=== PATIENT | female | born 1950 | race Caucasian/White ===

== ENCOUNTER → 2018-08-31 | Outpatient (CLI) | payer MEDICARE, OTHER ==
[2018-08-31 16:54] LABS: HCT 42.1 % (34.0-46.0); HGB 13.5 gm/dL (11.4-16.0); MCH 30.1 pg (25.0-35.0); MCV 93.9 fL (80.0-100.0); Mean Platelet Volume 7.8; Platelet Count 244 k/uL (150-450); RBC 4.49 m/uL (3.80-5.40); RDW 13.6 % (11.5-15.5); WBC 8.6 k/uL (3.8-10.6)
[2018-08-31 17:02] LABS: Potassium 4.4 mmol/L (3.5-5.1)
== END ==
LOC: LABPAT 15:52
PROVIDERS: ATTEND Internal Medicine Interventional Cardiology
DX: Z01.812 Encounter for preprocedural laboratory examination (principal); R06.02 Shortness of breath; R42 Dizziness and giddiness; R94.39 Abnormal result of other cardiovascular function study
CPT/HCPCS: 36415; 80051; 82565; 84520; 85027

== ENCOUNTER → 2018-09-04 | Outpatient (CLI) | payer MEDICARE, OTHER ==
--- NOTE | 2018-09-05 13:39 | CT ---
EXAMINATION TYPE: CT angio chest DATE OF EXAM: 09/04/2018 COMPARISON: None HISTORY: Per patient Abnormal stress test. dizziness and decreased BP CT DLP: 314.5 mGycm Automated exposure control for dose reduction was used. CONTRAST: CTA scan of the thorax is performed with IV Contrast, patient injected with 100 mL of Isovue 370, pul monary embolism protocol. MIP images are created and reviewed. 3D reconstructed images are created on an independent workstation and reviewed. FINDINGS: LUNGS: The lungs are grossly clear, there is no concerning parenchymal mass or nodule identified. T here is no pleural effusion or pneumothorax seen. The tracheobronchial tree is patent. AORTA: The root of the aorta measures approximately 3.8 cm. There is no evident dissection. Proximal descending aorta measures 2.8 cm. Atheromatous changes are present. At the origin of the left subcla vian artery there is a high-grade stenosis present. The left and right common carotid arteries, innom inate artery, right subclavian artery and vertebral arteries are patent, right vertebral artery is do minant. MEDIASTINUM: There is satisfactory enhancement of the pulmonary artery and its branches, there is no CT evidence for pulmonary embolism. There are no greater than 1 cm hilar or mediastinal lymph nodes. No pericardial effusion is seen. There are coronary calcifications present. OTHER: Patient is post cholecystectomy. Somewhat nodular appearance noted at the right adrenal gland could be due to underlying adenoma, consider follow-up IMPRESSION: PROXIMAL LEFT SUBCLAVIAN ARTERY STENOSIS. AORTIC MEASUREMENTS DESCRIBED, THERE IS CORONARY ARTERY DISEASE. ADDITIONAL FINDINGS ABOVE.
== END | disposition home or self-care (01) ==
LOC: RADCTMAIN 15:47
PROVIDERS: ATTEND Internal Medicine Interventional Cardiology
DX: I70.8 Atherosclerosis of other arteries (principal); I25.10 Atherosclerotic heart disease of native coronary artery without angina pectoris; Z90.49 Acquired absence of other specified parts of digestive tract
CPT/HCPCS: 71275; Q9967

== ENCOUNTER → 2018-10-10 | Outpatient (CLI) | payer MEDICARE, OTHER ==
[2018-10-10 17:52] LABS: LDL Cholesterol,Calculated 94.2 mg/dL (0.0-131.0); VLDL Calculation 29.8 mg/dL (5.00-40.00)
== END | disposition home or self-care (01) ==
LOC: LABWHC1 11:49
PROVIDERS: ATTEND Nurse Practitioner Adult Health
DX: E78.2 Mixed hyperlipidemia (principal)
CPT/HCPCS: 36415; 80061; 84450; 84460

== ENCOUNTER 2019-04-29 12:12 | Observation (INO) | payer MEDICARE, OTHER ==
[2019-04-29] MEDS ORDERED: MORPHINE SULFATE 4 MG/ML SYRINGE IV STA (13:09)
[2019-04-29] MEDS ORDERED: SODIUM CHLORIDE 0.9% 1,000 ML IV STA (13:09)
[2019-04-29] MEDS ORDERED: ONDANSETRON 4 MG/2 ML VIAL IVP STA (13:09)
[2019-04-29] MEDS ORDERED: PANTOPRAZOLE 40 MG/10 ML VIAL IVP STA (13:09)
--- NOTE | 2019-04-29 13:51 | ED ---
Abdominal Pain HPI <Jhonatan Burnham - Last Filed: 04/29/19 16:01> - General Source: patient, RN notes reviewed, old records reviewed Mode of arrival: ambulatory Limitations: no limitations <Kami Gale - Last Filed: 04/29/19 16:05> - General Chief Complaint: Abdominal Pain Stated Complaint: Abd pain Time Seen by Provider: 04/29/19 12:41 - History of Present Illness Initial Comments: This is a 68-year-old female presents emergency department with diffuse abdominal pain. She reports that she was seen at [facility], approximately one week ago for upper epigastric abdominal pain. Patient states that she was diagnosed with GERD and sent home. She's had multiple surgeries including hernias, and colostomy reversal's. Patient states that she has had no fevers or chills. She has chronic constipation. Patient states that she has had no changes in urination. She is concerned that there is scar tissue related to her diffuse abdominal pain. (Kami Gale) - Related Data Home Medications Medication Instructions Recorded Confirmed Aspirin [Adult Low Dose Aspirin EC] 81 mg PO DAILY 09/08/18 09/14/18 oxyCODONE ER [OxyCONTIN] 2.5 mg PO HS 09/08/18 09/14/18 Allergies Allergy/AdvReac Type Severity Reaction Status Date / Time tetracycline AdvReac Mild Nausea & Verified 09/14/18 06:51 Vomiting Review of Systems ROS Other: All systems not noted in ROS Statement are negative. <TejJhonatan - Last Filed: 04/29/19 16:01> ROS Other: All systems not noted in ROS Statement are negative. <Kami Gale - Last Filed: 04/29/19 16:05> ROS Statement: Those systems with pertinent positive or pertinent negative responses have been documented in the HPI. Past Medical History Additional Past Medical History / Comment(s): dizziness,"low BP"; restless leg, varicose veins History of Any Multi-Drug Resistant Organisms: None Reported Past Surgical History: Appendectomy, Bowel Resection, Cholecystectomy, Hernia Repair, Hysterectomy Additional Past Surgical History / Comment(s): Colostomy and reversal; Colonoscopy, Cataracts Past Anesthesia/Blood Transfusion Reactions: No Reported Reaction Past Psychological History: No Psychological Hx Reported Smoking Status: Current every day smoker Past Alcohol Use History: None Reported Past Drug Use History: None Reported, Unable to Obtain - Past Family History Mother Family Medical History: No Reported History <Kami Gale - Last Filed: 04/29/19 16:05> General Exam Limitations: no limitations General appearance: alert, in no apparent distress Head exam: Present: atraumatic, normocephalic, normal inspection Eye exam: Present: normal appearance, PERRL, EOMI. Absent: scleral icterus, conjunctival injection, periorbital swelling ENT exam: Present: normal exam Neck exam: Present: normal inspection. Absent: tenderness, meningismus, lymphadenopathy Respiratory exam: Present: normal lung sounds bilaterally. Absent: respiratory distress, wheezes, rales, rhonchi, stridor Cardiovascular Exam: Present: regular rate GI/Abdominal exam: Present: tenderness (Diffuse right lower quadrant and left lower quadrant tenderness.), normal bowel sounds. Absent: soft, distended, guarding, rebound, rigid Extremities exam: Present: normal inspection, full ROM, normal capillary refill. Absent: tenderness, pedal edema, joint swelling, calf tenderness Back exam: Present: normal inspection Neurological exam: Present: alert, oriented X3, CN II-XII intact Psychiatric exam: Present: normal affect, normal mood Skin exam: Present: warm, dry, intact, normal color. Absent: rash <Kami Gale - Last Filed: 04/29/19 16:05> - General Exam Comments Initial Comments: Pleasant 68-year-old female. No significant distress. (Kami Gale) Course <Jhonatan Burnham - Last Filed: 04/29/19 16:01> Vital Signs 04/29/19 04/29/19 12:32 14:00 Temperature 98.9 F Pulse Rate 86 76 Respiratory 18 18 Rate Blood Pressure 108/71 113/68 O2 Sat by Pulse 96 94 L Oximetry - Reevaluation(s) Reevaluation #1: 04/29/19 15:54 PA supervision: I proceeded [id number] evaluation the patient he does demonstrate evidence of abdominal pain and acute diverticulitis computed tomography scan was reviewed. I had a long discussion the patient and her . Patient be admitted for IV antibiotics and treatment of pain as well as IV fluids. The case is discussed with Dr. Kee (Jhonatan Burnham) Medical Decision Making - Lab Data Result diagrams: 04/29/19 14:00 04/29/19 14:00 <TejJhonatan - Last Filed: 04/29/19 16:01> - Lab Data Result diagrams: 04/29/19 14:00 04/29/19 14:00 - Radiology Data Radiology results: report reviewed <Kami Gale - Last Filed: 04/29/19 16:05> - Medical Decision Making This is a 68-year-old female who presents emergency department today for evaluation with complaints of diffuse abdominal pain for the past week. Denies any fevers or other complaints or sat extensive surgical history including colostomy, colostomy removal, as well as rectovaginal fistula. Patient has diffuse abdominal tenderness. Blood work was reviewed and unremarkable. CT shows evidence acute diverticular is. Patient said multiple complications involving diverticulitis in the past. I assessed Patient be admitted for observation or attempt outpatient treatment. Patient is hesitant to be treated outpatient leg, his pain is not managed after morphine. I discussed that she should've close follow-up afterwards with GI specialty. Patient admitted and started on Levaquin and Flagyl. (Kami Gale) - Lab Data Lab Results 04/29/19 04/29/19 04/29/19 Range/Units 14:00 14:00 14:00 WBC 8.8 (3.8-10.6) k/uL RBC 4.52 (3.80-5.40) m/uL Hgb 13.3 (11.4-16.0) gm/dL Hct 41.1 (34.0-46.0) % MCV 90.9 (80.0-100.0) fL MCH 29.3 (25.0-35.0) pg MCHC 32.3 (31.0-37.0) g/dL RDW 13.8 (11.5-15.5) % Plt Count 250 (150-450) k/uL Neutrophils % 53 % Lymphocytes % 34 % Monocytes % 7 % Eosinophils % 3 % Basophils % 1 % Neutrophils # 4.6 (1.3-7.7) k/uL Lymphocytes # 3.0 (1.0-4.8) k/uL Monocytes # 0.6 (0-1.0) k/uL Eosinophils # 0.2 (0-0.7) k/uL Basophils # 0.1 (0-0.2) k/uL PT (9.0-12.0) sec INR (<1.2) APTT (22.0-30.0) sec Sodium 141 (137-145) mmol/L Potassium 4.1 (3.5-5.1) mmol/L Chloride 104 (98-107) mmol/L Carbon Dioxide 29 (22-30) mmol/L Anion Gap 8 mmol/L BUN 14 (7-17) mg/dL Creatinine 0.95 (0.52-1.04) mg/dL Est GFR (CKD-EPI)AfAm 71 (>60 ml/min/1.73 sqM) Est GFR (CKD-EPI)NonAf 61 (>60 ml/min/1.73 sqM) Glucose 98 (74-99) mg/dL Calcium 9.4 (8.4-10.2) mg/dL Total Bilirubin 0.6 (0.2-1.3) mg/dL AST 20 (14-36) U/L ALT 15 (9-52) U/L Alkaline Phosphatase 84 (38-126) U/L Total Protein 7.2 (6.3-8.2) g/dL Albumin 4.1 (3.5-5.0) g/dL Amylase 47 (30-110) U/L Lipase 55 (23-300) U/L Urine Color Yellow Urine Appearance Cloudy H (Clear) Urine pH 6.0 (5.0-8.0) Ur Specific [place] 1.018 (1.001-1.035) Urine Protein Negative (Negative) Urine Glucose (UA) Negative (Negative) Urine Ketones Negative (Negative) Urine Blood Small H (Negative) Urine Nitrite Negative (Negative) Urine Bilirubin Negative (Negative) Urine Urobilinogen <2.0 (<2.0) mg/dL Ur Leukocyte Esterase Negative (Negative) Urine RBC 3 (0-5) /hpf Urine WBC 2 (0-5) /hpf Ur Squamous Epith Cells 10 H (0-4) /hpf Urine Bacteria Rare H (None) /hpf Urine Mucus Rare H (None) /hpf 04/29/19 Range/Units 14:00 WBC (3.8-10.6) k/uL RBC (3.80-5.40) m/uL Hgb (11.4-16.0) gm/dL Hct (34.0-46.0) % MCV (80.0-100.0) fL MCH (25.0-35.0) pg MCHC (31.0-37.0) g/dL RDW (11.5-15.5) % Plt Count (150-450) k/uL Neutrophils % % Lymphocytes % % Monocytes % % Eosinophils % % Basophils % % Neutrophils # (1.3-7.7) k/uL Lymphocytes # (1.0-4.8) k/uL Monocytes # (0-1.0) k/uL Eosinophils # (0-0.7) k/uL Basophils # (0-0.2) k/uL PT 9.9 (9.0-12.0) sec INR 0.9 (<1.2) APTT 22.8 (22.0-30.0) sec Sodium (137-145) mmol/L Potassium (3.5-5.1) mmol/L Chloride (98-107) mmol/L Carbon Dioxide (22-30) mmol/L Anion Gap mmol/L BUN (7-17) mg/dL Creatinine (0.52-1.04) mg/dL Est GFR (CKD-EPI)AfAm (>60 ml/min/1.73 sqM) Est GFR (CKD-EPI)NonAf (>60 ml/min/1.73 sqM) Glucose (74-99) mg/dL Calcium (8.4-10.2) mg/dL Total Bilirubin (0.2-1.3) mg/dL AST (14-36) U/L ALT (9-52) U/L Alkaline Phosphatase (38-126) U/L Total Protein (6.3-8.2) g/dL Albumin (3.5-5.0) g/dL Amylase (30-110) U/L Lipase (23-300) U/L Urine Color Urine Appearance (Clear) Urine pH (5.0-8.0) Ur Specific [place] (1.001-1.035) Urine Protein (Negative) Urine Glucose (UA) (Negative) Urine Ketones (Negative) Urine Blood (Negative) Urine Nitrite (Negative) Urine Bilirubin (Negative) Urine Urobilinogen (<2.0) mg/dL Ur Leukocyte Esterase (Negative) Urine RBC (0-5) /hpf Urine WBC (0-5) /hpf Ur Squamous Epith Cells (0-4) /hpf Urine Bacteria (None) /hpf Urine Mucus (None) /hpf - Radiology Data CT shows correlate for diverticulitis without abscess and postop changes. (Kami Gale) Disposition <Jhonatan Burnham - Last Filed: 04/29/19 16:01> Is patient prescribed a controlled substance at d/c from ED?: No Time of Disposition: 16:05 <Kami Gale - Last Filed: 04/29/19 16:05> Clinical Impression: Diverticulitis Disposition: ADMITTED IP TO THIS HOSP Condition: Stable Referrals: None,Stated [Primary Care Provider] - 1-2 days
[2019-04-29] MEDS: SODIUM CHLORIDE 0.9% 1,000 ML IV STA ×2 (13:56→18:01)
[2019-04-29 14:11] LABS: Basophils # (A) 0.1 k/uL (0-0.2); Basophils % (A) 1 %; Eosinophils # (A) 0.2 k/uL (0-0.7); Eosinophils % (A) 3 %; HCT 41.1 % (34.0-46.0); HGB 13.3 gm/dL (11.4-16.0); Lymphocytes % (A) 34 %; MCH 29.3 pg (25.0-35.0); MCHC 32.3 g/dL (31.0-37.0); MCV 90.9 fL (80.0-100.0); Mean Platelet Volume 7.8; Monocytes # (A) 0.6 k/uL (0-1.0); Monocytes % (A) 7 %; Neutrophils # (A) 4.6 k/uL (1.3-7.7); Neutrophils % (A) 53 %; Platelet Count 250 k/uL (150-450); RBC 4.52 m/uL (3.80-5.40); RDW 13.8 % (11.5-15.5); WBC 8.8 k/uL (3.8-10.6)
[2019-04-29 14:20] LABS: Albumin 4.1 g/dL (3.5-5.0); Calcium 9.4 mg/dL (8.4-10.2); Potassium 4.1 mmol/L (3.5-5.1); Total Bilirubin 0.6 mg/dL (0.2-1.3); Total Protein 7.2 g/dL (6.3-8.2)
[2019-04-29 14:22] LABS: INR 0.9 (<1.2); Partial Thromboplastin Time 22.8 sec (22.0-30.0); Prothrombin Time 9.9 sec (9.0-12.0)
[2019-04-29 14:37] LABS: Appearance,Urine Cloudy (Clear); Bacteria,Urine Rare /hpf; Bilirubin,Urine Negative (Negative); Blood,Urine Small (Negative); Color,Urine Yellow; Glucose,Urine (UA) Negative (Negative); Ketones,Urine Negative (Negative); Leukocyte Esterase,Urine Negative (Negative); Mucus,Urine Rare /hpf; Nitrite,Urine Negative (Negative); Protein,Urine Negative (Negative); RBC,Urine 3 /hpf (0-5); Specific Gravity,Urine 1.018 (1.001-1.035); Squamous Epithelial Cell,Urine 10 /hpf (0-4); Urobilinogen,Urine <2.0 mg/dL (<2.0); WBC,Urine 2 /hpf (0-5)
--- NOTE | 2019-04-29 15:07 | CT ---
EXAMINATION TYPE: CT abdomen pelvis w con DATE OF EXAM: 04/29/2019 COMPARISON: HISTORY: Generalized abdominal pain. CT DLP: 936.5 mGycm Automated exposure control for dose reduction was used. TECHNIQUE: Helical acquisition of images from the lung bases through the pelvis have been completed. CONTRAST: Performed without Oral Contrast and with IV Contrast, patient injected with 100 mL of Isovue 300. FINDINGS: There is a small hiatal hernia present. LUNG BASES: Some minimal dependent atelectatic changes are present. 2 mm subpleural nodular density p resent on axial image #4 at the right lung base questionable clinical significance. AORTA: There are sclerotic vascular calcifications within the aorta and mesenteric vasculature LIVER/GB: Liver shows low attenuation likely due to hepatic steatosis. Gallbladder is surgically abse nt. PANCREAS: No significant abnormality is seen. SPLEEN: No significant abnormality is seen. ADRENALS: No significant abnormality is seen. KIDNEYS: Cortical cysts associated with the left kidney measuring approximately 2 cm posterior latera lly in the lower pole and 18 mm anteriorly, midpole exophytic cyst measures 2.4 cm. Possible 3 mm les ion in the lower pole the right kidney, 8 mm lesion posteriorly in exophytic location REPRODUCTIVE ORGANS: Not seen BOWEL: Small bowel folds show some wall thickening, postop changes are noted to the small bowel in t he anterior abdomen. Within the descending colon there is some bowel wall thickening, diverticular no zaid. Inflammatory changes suspected within the fat adjacent to the sigmoid colon. Postop changes note d to the rectosigmoid colon region. FREE AIR: No Free Air visible. ASCITES: None visible. PELVIC ADENOPATHY: None visualized. RETROPERITONEAL ADENOPATHY: No Retroperitoneal Adenopathy visible. URINARY BLADDER: No significant abnormality is seen. OSSEOUS STRUCTURES: Degenerative disc changes are present in the visualized spine, there is a spinal curvature. Facet arthropathy noted in the lower lumbar spine IMPRESSION: CORRELATE FOR DIVERTICULITIS WITHOUT ABSCESS. POSTOP CHANGES.
[2019-04-29] MEDS ORDERED: metroNIDAZOLE-NS PMX 500 MG in SALINE 1 100ML.BAG IVPB STA (15:38)
[2019-04-29] MEDS ORDERED: LEVOFLOXACIN 750MG-D5W PMX 750 MG in DEXTROSE/WATER 1 150ML.BAG IVPB STA (15:38)
[2019-04-29] MEDS ORDERED: HYDROmorphone 1 MG/ML 1 ML SYRINGE IVP STA (15:41)
[2019-04-29] MEDS ORDERED: ACETAMINOPHEN TAB 325 MG TAB PO PRN (16:18)
[2019-04-29] MEDS ORDERED: HYDROmorphone 1 MG/ML 1 ML SYRINGE IVP PRN (16:18)
[2019-04-29] MEDS ORDERED: KETOROLAC 30 MG/ML 1 ML VIAL IVP PRN (16:18)
[2019-04-29] MEDS ORDERED: IBUPROFEN 400 MG TAB PO PRN (16:18)
[2019-04-29] MEDS ORDERED: NALOXONE 0.4 MG/ML 1 ML VIAL IV PRN (16:18)
[2019-04-29 18:00] VITALS: BMI 31.1
[2019-04-29] MEDS: SODIUM CHLORIDE 0.9% 1,000 ML IV SCH (18:01)
[2019-04-29] MEDS ORDERED: ONDANSETRON 4 MG/2 ML VIAL IVP PRN (19:12)
[2019-04-29] MEDS: MAG HYDROX/AL HYDROX/SIMETH 30 ML CUP PO PRN (22:51)
[2019-04-30] MEDS: metroNIDAZOLE-NS PMX 500 MG in SALINE 1 100ML.BAG IVPB SCH ×2 (03:19→10:58)
[2019-04-30] MEDS: SODIUM CHLORIDE 0.9% 1,000 ML IV SCH ×2 (03:19→10:58)
[2019-04-30 08:34] VITALS: BP 92/51; PULSE 78; RESP 16; TEMP 98.1
[2019-04-30] MEDS ORDERED: ASPIRIN 81 MG PO SCH (09:00)
[2019-04-30] MEDS ORDERED: HEPARIN SODIUM,PORCINE 5,000 UNIT/ML 1 ML VIAL SQ SCH (09:00)
[2019-04-30] MEDS ORDERED: PANTOPRAZOLE 40 MG/10 ML VIAL IV SCH (09:00)
[2019-04-30] MEDS: MAG HYDROX/AL HYDROX/SIMETH 30 ML CUP PO PRN (11:01)
--- NOTE | 2019-04-30 11:46 | P.HPIM ---
History of Present Illness H&P Date: 04/29/19 Chief Complaint: Abdominal pain Patient is a 68-year-old female with a known history of diverticulitis, colostomy and reversal came to ER with the complaints of abdominal pain mainly left lower quadrant worsening for the past 2 weeks. Patient was seen at [facility] about one week ago for upper epigastric abdominal pain. Patient was diagnosed with GERD and sent home. Patient had multiple surgeries including colostomy reversal, hernia repairs. Patient otherwise denied any vomiting. No fever no chills. Nauseated. No chest pain or shortness of breath. headache or dizziness or lightheadedness. Denied any dysuria or hematuria. No aggravating or relieving factors. Patient came to ER for further evaluation. Denied any blood in the stool. CT of abdomen pelvis showed acute diverticulitis. Review of Systems Constitutional: Patient denies any fever or chills . No generalized weakness or weight loss. Abdomen: Does have nausea and abdominal pain. No vomiting no diarrhea Cardiovascular: Patient denies any chest pain or short of breath no palpitations. Respiratory: patient denied any cough is from production. No shortness of breath Neurologic: Patient denied any numbness or tingling headache. Musculoskeletal: Patient denies any complaints of joint swelling or deformity. Skin: Negative Psychiatric: Negative Endocrine: No heat or cold intolerance. No recent weight gain. Genitourinary: No dysuria or hematuria. All other 14 point ROS negative except the above Past Medical History Additional Past Medical History / Comment(s): dizziness,"low BP"; restless leg, varicose veins History of Any Multi-Drug Resistant Organisms: None Reported Past Surgical History: Bowel Resection, Cholecystectomy, Hernia Repair, Hysterectomy Additional Past Surgical History / Comment(s): Colostomy and reversal; Colonoscopy, Cataracts Past Anesthesia/Blood Transfusion Reactions: No Reported Reaction Past Psychological History: No Psychological Hx Reported Smoking Status: Current every day smoker Past Alcohol Use History: None Reported Additional Past Alcohol Use History / Comment(s): has smoked 1/2 ppd for about 45 years Past Drug Use History: None Reported, Unable to Obtain - Past Family History Mother Family Medical History: No Reported History Medications and Allergies Home Medications Medication Instructions Recorded Confirmed Type oxyCODONE-APAP 10-325MG [Percocet 0.5 tab PO HS 04/29/19 04/29/19 History 10-325 mg] Levofloxacin [Levaquin] 500 mg PO DAILY 5 Days #5 tab 04/30/19 Rx metroNIDAZOLE [Flagyl] 500 mg PO Q8HR 5 Days #15 tab 04/30/19 Rx Allergies Allergy/AdvReac Type Severity Reaction Status Date / Time adhesive tape Allergy Severe TURNS SKIN Verified 04/29/19 16:48 BLACK AND BLUE WITH RASH AROUND AREA lactose Allergy Nausea & Verified 04/29/19 16:48 Vomiting & Diarrhea tetracycline AdvReac Mild Nausea & Verified 09/14/18 06:51 Vomiting codeine AdvReac Nausea & Verified 04/29/19 16:48 Vomiting Physical Exam Vitals: Vital Signs Temp Pulse Pulse Resp BP BP Pulse Ox 04/30/19 01:06 98.0 F 66 18 93/53 91 L 04/29/19 19:06 97.6 F 86 16 100/53 93 L 04/29/19 18:03 97.9 F 81 100/66 96 04/29/19 17:37 97.8 F 85 18 98/61 94 L 04/29/19 16:27 97.8 F 76 18 104/74 96 04/29/19 14:00 76 18 113/68 94 L 04/29/19 12:32 98.9 F 86 18 108/71 96 Intake and Output 04/29/19 04/29/19 04/30/19 14:59 22:59 06:59 Other: # Voids 2 Weight 79.832 kg PHYSICAL EXAMINATION: Patient is lying in the bed comfortably, no acute distress, awake alert and oriented.. HEENT: Normocephalic. Neck is supple. Pupils reactive. Nostrils clear. Oral cavity is moist. Ears reveal no drainage. Neck reveals no JVD, carotid bruits, or thyromegaly. CHEST EXAMINATION: Trachea is central. Symmetrical expansion. Lung christianson clear to auscultation and percussion. CARDIAC: Normal S1, S2 with no gallops. No murmurs ABDOMEN: Soft. Left lower quadrant tenderness. No guarding no rigidity. Bowel sounds normal. No organomegaly. No abdominal bruits. Extremities: reveal no edema. No clubbing or cyanosis Neurologically awake, alert, oriented x3 with well-coordinated movements. No focal deficits noted Skin: No rash or skin lesions. Psychiatric: Coperative. Nonsuicidal Musculoskeletal: No joint swelling or deformity. Normal range of motion. Results CBC & Chem 7: 04/29/19 14:00 04/29/19 14:00 Labs: Abnormal Lab Results - Last 24 Hours (Table) 04/29/19 Range/Units 14:00 Urine Appearance Cloudy H (Clear) Urine Blood Small H (Negative) Ur Squamous Epith Cells 10 H (0-4) /hpf Urine Bacteria Rare H (None) /hpf Urine Mucus Rare H (None) /hpf Microbiology - Last 24 Hours (Table) 04/29/19 14:00 Urine Culture - Preliminary Urine,Voided Thrombosis Risk Factor Assmnt - DVT/VTE Prophylaxis DVT/VTE Prophylaxis: Pharmacologic Prophylaxis ordered Assessment and Plan Assessment: Abdominal pain secondary to acute diverticulitis. History of diverticulitis and colostomy with reversal. Multiple abdominal surgeries including bowel resection cholecystectomy and hernia repair and hysterectomy Nicotine addiction Heparin subcu for DVT prophylaxis. Plan: Patient be continued on IV fluids. Nothing by mouth until nausea improves and symptomatic management. And with antibiotics no cough Levaquin and is Flagyl. Follow closely and further recommendations based on the clinical course. Time with Patient: Greater than 30
[2019-04-30] MEDS ORDERED: LEVOFLOXACIN 500MG-D5W PMX 500 MG in DEXTROSE/WATER 1 100ML.BAG IVPB SCH (16:00)
== END 2019-04-30 13:10 | disposition home or self-care (01) ==
LOC: EC 12:12 → UNDOADMOB 15:54 → 4MS4W 15:54 → 4SSUR 16:50
PROVIDERS: ADMIT Internal Medicine; ATTEND Internal Medicine
DX: K57.92 Diverticulitis of intestine, part unspecified, without perforation or abscess without bleeding (principal); K21.9 Gastro-esophageal reflux disease without esophagitis; I44.0 Atrioventricular block, first degree; I95.9 Hypotension, unspecified; K59.09 Other constipation; G25.81 Restless legs syndrome; R42 Dizziness and giddiness; I83.90 Asymptomatic varicose veins of unspecified lower extremity; F17.210 Nicotine dependence, cigarettes, uncomplicated; Z91.048 Other nonmedicinal substance allergy status; Z79.82 Long term (current) use of aspirin; Z79.891 Long term (current) use of opiate analgesic; Z88.1 Allergy status to other antibiotic agents; Z90.710 Acquired absence of both cervix and uterus; Z90.49 Acquired absence of other specified parts of digestive tract; Z98.49 Cataract extraction status, unspecified eye; Z88.5 Allergy status to narcotic agent; Z91.011 Allergy to milk products
CPT/HCPCS: 96376 ×2; 96366; 96372; 96361; 96365; 96367; 96375; 99285; 36415; 93005; 80053; 82150; 83690; 85025; 85610; 85730; 81001; 87086; 74177; G0378 ×2; J2270; J1644; J2405; J1170; J1956; C9113 ×2; Q9967

== ENCOUNTER 2019-05-09 17:09 | Inpatient (IN) | payer MEDICARE ==
[2019-05-09] MEDS ORDERED: KETOROLAC 30 MG/ML 1 ML VIAL IVP STA (17:21)
[2019-05-09] MEDS ORDERED: PANTOPRAZOLE 40 MG/10 ML VIAL IVP STA (17:21)
[2019-05-09] MEDS ORDERED: SODIUM CHLORIDE 0.9% 1,000 ML IV STA ×2 (17:21)
[2019-05-09] MEDS ORDERED: MORPHINE SULFATE 4 MG/ML SYRINGE IV STA (17:21)
[2019-05-09 17:50] LABS: Basophils # (A) 0.1 k/uL (0-0.2); Basophils % (A) 1 %; Eosinophils # (A) 0.3 k/uL (0-0.7); Eosinophils % (A) 3 %; HCT 41.3 % (34.0-46.0); HGB 13.4 gm/dL (11.4-16.0); Lymphocytes # (A) 3.8 k/uL (1.0-4.8); Lymphocytes % (A) 35 %; MCH 29.6 pg (25.0-35.0); MCHC 32.5 g/dL (31.0-37.0); MCV 91.3 fL (80.0-100.0); Mean Platelet Volume 7.7; Monocytes # (A) 0.6 k/uL (0-1.0); Monocytes % (A) 6 %; Neutrophils # (A) 5.8 k/uL (1.3-7.7); Neutrophils % (A) 54 %; Platelet Count 244 k/uL (150-450); RBC 4.52 m/uL (3.80-5.40); RDW 13.9 % (11.5-15.5); WBC 10.9 k/uL (3.8-10.6)
[2019-05-09 18:02] LABS: Albumin 4.1 g/dL (3.5-5.0); Calcium 8.8 mg/dL (8.4-10.2); Potassium 4.2 mmol/L (3.5-5.1); Total Bilirubin 0.5 mg/dL (0.2-1.3); Total Protein 7.2 g/dL (6.3-8.2)
[2019-05-09 18:08] LABS: Amorphous Sediment,Urine Rare /hpf; Appearance,Urine Clear (Clear); Bilirubin,Urine Negative (Negative); Blood,Urine Small (Negative); Color,Urine Yellow; Glucose,Urine (UA) Negative (Negative); Ketones,Urine Negative (Negative); Leukocyte Esterase,Urine Trace (Negative); Mucus,Urine Occasional /hpf; Nitrite,Urine Negative (Negative); Protein,Urine Negative (Negative); RBC,Urine 3 /hpf (0-5); Specific Gravity,Urine 1.017 (1.001-1.035); Squamous Epithelial Cell,Urine 6 /hpf (0-4); WBC,Urine 4 /hpf (0-5)
--- NOTE | 2019-05-09 18:38 | ED ---
Abdominal Pain HPI - General Chief Complaint: Abdominal Pain Stated Complaint: Hx diverticulitis, not getting better Time Seen by Provider: 05/09/19 17:21 Source: patient, RN notes reviewed, old records reviewed Mode of arrival: ambulatory Limitations: no limitations - History of Present Illness Initial Comments: This is a 5-year-old female the ER for evaluation. Patient resents today for evaluation regards to abdominal pain with history of diverticulitis. No recent travel history or sick contacts. Patient states she was doing fine at home on Augmentin but pain started again worse today. She was put on Flagyl she had difficult time with Flagyl was unable to complete the course medication. No new fevers. No diarrhea but in the stool. Patient has not had recent colonoscopy with has extensive surgical history not done here at this hospital or in [place] Complaint: abdominal pain -: week(s) Location: diffuse, LLQ Radiation: LLQ Migration to: no migration Severity: moderate Severity scale (1-10): 6 Quality: stabbing, aching Consistency: constant Improves With: nothing Worsens With: nothing Context: recent antibiotic use Associated Symptoms: nausea - Related Data Home Medications Medication Instructions Recorded Confirmed oxyCODONE-APAP 10-325MG [Percocet 0.5 tab PO HS 04/29/19 05/09/19 10-325 mg] Amoxicillin/Potassium Clav 1 tab PO BID 05/09/19 05/09/19 [Augmentin 875-125 Tablet] Allergies Allergy/AdvReac Type Severity Reaction Status Date / Time adhesive tape Allergy Severe TURNS SKIN Verified 05/09/19 18:02 BLACK AND BLUE WITH RASH AROUND AREA lactose Allergy Nausea & Verified 05/09/19 18:02 Vomiting & Diarrhea tetracycline AdvReac Mild Nausea & Verified 05/09/19 18:02 Vomiting codeine AdvReac Nausea & Verified 05/09/19 18:02 Vomiting metronidazole [From Flagyl] AdvReac nausea Verified 05/09/19 19:41 vomiting diarrhea Review of Systems ROS Statement: Those systems with pertinent positive or pertinent negative responses have been documented in the HPI. ROS Other: All systems not noted in ROS Statement are negative. Past Medical History Additional Past Medical History / Comment(s): dizziness,"low BP"; restless leg, varicose veins History of Any Multi-Drug Resistant Organisms: None Reported Past Surgical History: Bowel Resection, Cholecystectomy, Hernia Repair, Hysterectomy Additional Past Surgical History / Comment(s): Colostomy and reversal; Col onoscopy, Cataracts Past Anesthesia/Blood Transfusion Reactions: No Reported Reaction Past Psychological History: No Psychological Hx Reported Smoking Status: Current every day smoker Past Alcohol Use History: None Reported Past Drug Use History: None Reported, Unable to Obtain - Past Family History Mother Family Medical History: No Reported History General Exam Limitations: no limitations General appearance: alert, in no apparent distress Head exam: Present: atraumatic, normocephalic, normal inspection Eye exam: Present: normal appearance, PERRL, EOMI. Absent: scleral icterus, conjunctival injection, periorbital swelling ENT exam: Present: normal exam, mucous membranes moist Neck exam: Present: normal inspection. Absent: tenderness, meningismus, lymphadenopathy Respiratory exam: Present: normal lung sounds bilaterally. Absent: respiratory distress, wheezes, rales, rhonchi, stridor Cardiovascular Exam: Present: regular rate, normal rhythm, normal heart sounds. Absent: systolic murmur, diastolic murmur, rubs, gallop, clicks GI/Abdominal exam: Present: soft, normal bowel sounds. Absent: distended, tenderness, guarding, rebound, rigid Extremities exam: Present: normal inspection, full ROM, normal capillary refill. Absent: tenderness, pedal edema, joint swelling, calf tenderness Back exam: Present: normal inspection Neurological exam: Present: alert, oriented X3, CN II-XII intact Psychiatric exam: Present: normal affect, normal mood Skin exam: Present: warm, dry, intact, normal color. Absent: rash Course Vital Signs 05/09/19 17:16 Temperature 98.8 F Pulse Rate 80 Respiratory 18 Rate Blood Pressure 113/77 O2 Sat by Pulse 95 Oximetry - Reevaluation(s) Reevaluation #1: 05/09/19 18:35 Medical record is reviewed Reevaluation #2: 05/09/19 18:35 Patient is controlled Medical Decision Making - Medical Decision Making 68 female the ER for evaluation of abdominal pain. History of diverticulitis positive for diverticulitis. We'll admit for pain control and nothing by mouth status - Lab Data Result diagrams: 05/10/19 06:22 05/10/19 06:22 Lab Results 05/09/19 05/09/19 05/09/19 Range/Units 17:41 17:41 17:41 WBC 10.9 H (3.8-10.6) k/uL RBC 4.52 (3.80-5.40) m/uL Hgb 13.4 (11.4-16.0) gm/dL Hct 41.3 (34.0-46.0) % MCV 91.3 (80.0-100.0) fL MCH 29.6 (25.0-35.0) pg MCHC 32.5 (31.0-37.0) g/dL RDW 13.9 (11.5-15.5) % Plt Count 244 (150-450) k/uL Neutrophils % 54 % Lymphocytes % 35 % Monocytes % 6 % Eosinophils % 3 % Basophils % 1 % Neutrophils # 5.8 (1.3-7.7) k/uL Lymphocytes # 3.8 (1.0-4.8) k/uL Monocytes # 0.6 (0-1.0) k/uL Eosinophils # 0.3 (0-0.7) k/uL Basophils # 0.1 (0-0.2) k/uL ESR (0-20) mm/hr Sodium 140 (137-145) mmol/L Potassium 4.2 (3.5-5.1) mmol/L Chloride 103 (98-107) mmol/L Carbon Dioxide 27 (22-30) mmol/L Anion Gap 10 mmol/L BUN 15 (7-17) mg/dL Creatinine 0.88 (0.52-1.04) mg/dL Est GFR (CKD-EPI)AfAm 78 (>60 ml/min/1.73 sqM) Est GFR (CKD-EPI)NonAf 67 (>60 ml/min/1.73 sqM) Glucose 119 H (74-99) mg/dL Plasma Lactic Acid Paulino 1.0 (0.7-2.0) mmol/L Calcium 8.8 (8.4-10.2) mg/dL Total Bilirubin 0.5 (0.2-1.3) mg/dL AST 22 (14-36) U/L ALT 15 (9-52) U/L Alkaline Phosphatase 86 (38-126) U/L C-Reactive Protein (<10.0) mg/L Total Protein 7.2 (6.3-8.2) g/dL Albumin 4.1 (3.5-5.0) g/dL Amylase 47 (30-110) U/L Lipase 67 (23-300) U/L Urine Color Urine Appearance (Clear) Urine pH (5.0-8.0) Ur Specific [place] (1.001-1.035) Urine Protein (Negative) Urine Glucose (UA) (Negative) Urine Ketones (Negative) Urine Blood (Negative) Urine Nitrite (Negative) Urine Bilirubin (Negative) Urine Urobilinogen (<2.0) mg/dL Ur Leukocyte Esterase (Negative) Urine RBC (0-5) /hpf Urine WBC (0-5) /hpf Ur Squamous Epith Cells (0-4) /hpf Amorphous Sediment (None) /hpf Urine Mucus (None) /hpf 05/09/19 05/09/19 05/09/19 Range/Units 17:41 17:41 17:57 WBC (3.8-10.6) k/uL RBC (3.80-5.40) m/uL Hgb (11.4-16.0) gm/dL Hct (34.0-46.0) % MCV (80.0-100.0) fL MCH (25.0-35.0) pg MCHC (31.0-37.0) g/dL RDW (11.5-15.5) % Plt Count (150-450) k/uL Neutrophils % % Lymphocytes % % Monocytes % % Eosinophils % % Basophils % % Neutrophils # (1.3-7.7) k/uL Lymphocytes # (1.0-4.8) k/uL Monocytes # (0-1.0) k/uL Eosinophils # (0-0.7) k/uL Basophils # (0-0.2) k/uL ESR 24 H (0-20) mm/hr Sodium (137-145) mmol/L Potassium (3.5-5.1) mmol/L Chloride (98-107) mmol/L Carbon Dioxide (22-30) mmol/L Anion Gap mmol/L BUN (7-17) mg/dL Creatinine (0.52-1.04) mg/dL Est GFR (CKD-EPI)AfAm (>60 ml/min/1.73 sqM) Est GFR (CKD-EPI)NonAf (>60 ml/min/1.73 sqM) Glucose (74-99) mg/dL Plasma Lactic Acid Paulino (0.7-2.0) mmol/L Calcium (8.4-10.2) mg/dL Total Bilirubin (0.2-1.3) mg/dL AST (14-36) U/L ALT (9-52) U/L Alkaline Phosphatase (38-126) U/L C-Reactive Protein 12.4 H (<10.0) mg/L Total Protein (6.3-8.2) g/dL Albumin (3.5-5.0) g/dL Amylase (30-110) U/L Lipase (23-300) U/L Urine Color Yellow Urine Appearance Clear (Clear) Urine pH 6.0 (5.0-8.0) Ur Specific [place] 1.017 (1.001-1.035) Urine Protein Negative (Negative) Urine Glucose (UA) Negative (Negative) Urine Ketones Negative (Negative) Urine Blood Small H (Negative) Urine Nitrite Negative (Negative) Urine Bilirubin Negative (Negative) Urine Urobilinogen 2.0 (<2.0) mg/dL Ur Leukocyte Esterase Trace H (Negative) Urine RBC 3 (0-5) /hpf Urine WBC 4 (0-5) /hpf Ur Squamous Epith Cells 6 H (0-4) /hpf Amorphous Sediment Rare H (None) /hpf Urine Mucus Occasional H (None) /hpf - Radiology Data Radiology results: report reviewed (CT head and pelvis positive for diverticuli tis), image reviewed Disposition Clinical Impression: Abdominal pain Disposition: ADMITTED IP TO THIS [facility] Condition: Good Is patient prescribed a controlled substance at d/c from ED?: No
[2019-05-09] MEDS ORDERED: ONDANSETRON 4 MG/2 ML VIAL IVP PRN (18:40)
[2019-05-09] MEDS ORDERED: MORPHINE SULFATE 4 MG/ML SYRINGE IVP PRN (18:40)
[2019-05-09] MEDS ORDERED: ONDANSETRON 4 MG/2 ML VIAL IVP STA (18:40)
[2019-05-09] MEDS ORDERED: AMPICILLIN-SULBACTAM 3 GM in SODIUM CHLORIDE 0.9% 100 ML IVPB STA (18:40)
--- NOTE | 2019-05-09 19:33 | CT ---
EXAMINATION TYPE: CT abdomen pelvis w con DATE OF EXAM: 05/09/2019 COMPARISON: 04/29/2019 HISTORY: Abdominal pain. Hx of diverticulitis CT DLP: 969.3 mGycm Automated exposure control for dose reduction was used. TECHNIQUE: Helical acquisition of images was performed from the lung bases through the pelvis. CONTRAST: Performed without Oral Contrast and with IV Contrast, patient injected with 100 mL of Isovue 300. FINDINGS: Lung bases are clear of consolidation. There is mild basilar subsegmental atelectasis. There is no pl eural effusion. There is no pericardial effusion. There are clips from cholecystectomy. Liver and spleen appear normal. There is no evidence of a pancr eatic mass. Bile ducts are not dilated. There is no adrenal mass. Kidneys show satisfactory contrast opacification. There is no hydronephrosi s. There is 2.5 cm cortical cyst lateral left kidney. There is 2 cm cortical cyst lateral left kidney . There is 1 cm cortical cyst anterior left kidney. There are small cortical cyst posterior right kid florina. There is no retroperitoneal adenopathy. There is left lateral anterior abdominal wall ventral br oad-based hernia. There are surgical clips in the small bowel in the anterior lower abdomen. Ureters are not dilated. Bladder distends smoothly. There is no pelvic mass. There is no inguinal hernia. The re is no evidence of a bowel obstruction. Appendix is not definitely seen. There is no sign of a thic kened appendix. There are some spondylotic changes in the lumbar spine. There is no evidence of a bow el obstruction. There is no mesenteric edema. There is no ascites. There is no free air. IMPRESSION: NO SIGN OF ACUTE ABDOMEN AND PELVIS. ATHEROSCLEROTIC VASCULAR DISEASE. RENAL CORTICAL CYSTS. NO EVIDENCE OF ANY SIGNIFICANT DIVERTICULAR DISEASE. PREVIOUS RECTAL SURGERY NOTED. PREVIOUS SMALL CHAVEZ WEL SURGERY. NO ADVERSE CHANGE COMPARED TO LAST EXAM.
[2019-05-09 19:40] VITALS: BMI 30.4
[2019-05-09] MEDS ORDERED: oxyCODONE-APAP 5-325MG 1 EACH TAB PO PRN (20:52)
--- NOTE | 2019-05-09 22:56 | HP ---
HISTORY AND PHYSICAL DATE OF SERVICE: 05/09/2019 CHIEF COMPLAINT: Abdominal pain. HISTORY OF PRESENT ILLNESS: This 68-year-old woman with a past medical history of multiple medical problems including history of dizziness, history of aortic aneurysm 4 cm, history of bowel resection, cholecystectomy, history of hernia repair, history of colostomy reversal, diverticulitis and possible perforation several years ago in [place] being followed Chandan Sánchez and Yanira Wilcox in the outpatient setting was admitted recently with features of diverticulitis. Patient apparently went home and currently the patient is taking antibiotics, but currently the patient is complaining of severe abdominal pain in the lower part of the abdomen which is radiating across the lower part of the abdomen. The patient came to [facility] and was admitted for further evaluation and treatment. There is no history of fever, rigors. No headache, loss of consciousness or seizures. The white count is elevated at 10.[address] scan of the abdomen and pelvis repeated which showed no evidence of any significant diverticular disease. No chest pain. No palpitations. No fever. The patient admitted for further evaluation and treatment. PAST MEDICAL HISTORY: Of appendectomy, bowel resection, cholecystectomy, history of colostomy reversal, history of nicotine dependence. MEDICATIONS: Prior to admission include: 1. Oxycodone 10 mg q.h.s. 2. Augmentin 875 mg p.o. b.i.d. ALLERGIES: ARE ADHESIVE TAPES, LACTOSE, TETRACYCLINE, CODEINE AND FLAGYL. FAMILY HISTORY: No history of heart disease or strokes in the family. SOCIAL HISTORY: History of smoking. REVIEW OF SYSTEMS: ENT: No diminished vision. No diminished hearing. CARDIOVASCULAR: No angina or palpitations. RESPIRATIONS: No cough or hemoptysis. GI as mentioned earlier. no dysuria. CENTRAL NERVOUS SYSTEM: No numbness or weakness. ALLERGY/IMMUNOLOGY: No asthma or hayfever. MUSCULOSKELETAL as mentioned earlier. HEMATOLOGY/ONCOLOGY: No history of anemia. ENDOCRINE: No history of diabetes or hypothyroidism. CONSTITUTIONAL: As mentioned earlier. DERMATOLOGY: Negative. RHEUMATOLOGY negative. PSYCHIATRY as mentioned earlier. PHYSICAL EXAMINATION: Alert and oriented x3. Pulse 78. Blood pressure 119/59, respiration 18, temperature 97.2. Pulse ox 100 percent on room air. HEENT: Conjunctivae normal. NECK: No jugular venous distention. CARDIOVASCULAR: S1, S2 muffled. RESPIRATORY: Breath sounds diminished in the bases. A few scattered rhonchi and crackles. ABDOMEN: Soft, mild diffuse tenderness lower part. No guarding. No rigidity. LEGS: No edema. No swelling. NERVOUS SYSTEM: Higher functions as mentioned earlier, moves all 4 limbs. No focal motor or sensory deficits. LYMPHATICS: No lymph nodes palpable in the neck, axillae or groin. SKIN: No ulcer, rash or bleeding. JOINTS: No active deforming arthropathy. LAB STUDIES: WBC 10.9, sodium 140, potassium 4.2. ASSESSMENT: 1. Abdominal pain for evaluation possibly acute diverticulitis with failure of outpatient treatment. 2. Increased WBC. 3. History of recent diverticulitis. 4. History of appendectomy. 5. History of bowel resection. 6. History of hernia repair. 7. History of hysterectomy. 8. History of colostomy reversal. 9. History of nicotine dependence, continued ongoing. 10.History of abdominal aortic aneurysm 4 cm. RECOMMENDATIONS AND DISCUSSION: In this 68-year-old woman who presented with multiple medical issues, we will monitor the patient closely, continue the current medications, management and symptomatic treatment. Otherwise, I would recommend broad-spectrum IV antibiotics. We will continue with home medications. Other than that, I would also recommend gastroenterology and surgical evaluation. Guarded prognosis because of the multiple complex medical issues. Further recommendations to follow. A copy of dictation being forwarded to Dr. Chandan Lee who is the primary physician. MMJAMARI / JORGE A: [id number] /
[2019-05-10] MEDS: AMPICILLIN-SULBACTAM 3 GM in SODIUM CHLORIDE 0.9% 100 ML IVPB SCH ×2 (04:05→12:15)
[2019-05-10 06:35] LABS: Basophils # (A) 0.1 k/uL (0-0.2); Basophils % (A) 1 %; Eosinophils # (A) 0.3 k/uL (0-0.7); Eosinophils % (A) 4 %; HCT 36.7 % (34.0-46.0); HGB 11.6 gm/dL (11.4-16.0); Lymphocytes # (A) 3.1 k/uL (1.0-4.8); Lymphocytes % (A) 40 %; MCH 29.6 pg (25.0-35.0); MCHC 31.7 g/dL (31.0-37.0); MCV 93.4 fL (80.0-100.0); Mean Platelet Volume 7.5; Monocytes # (A) 0.6 k/uL (0-1.0); Monocytes % (A) 7 %; Neutrophils # (A) 3.5 k/uL (1.3-7.7); Neutrophils % (A) 45 %; Platelet Count 209 k/uL (150-450); RBC 3.93 m/uL (3.80-5.40); RDW 13.9 % (11.5-15.5); WBC 7.7 k/uL (3.8-10.6)
[2019-05-10 06:46] LABS: Calcium 8.1 mg/dL (8.4-10.2); Potassium 4.3 mmol/L (3.5-5.1)
[2019-05-10] MEDS ORDERED: FLUCONAZOLE 150 MG TAB PO SCH (09:00)
[2019-05-10] MEDS: ENOXAPARIN 40 MG/0.4 ML SYRINGE SQ SCH (10:01)
[2019-05-10] MEDS: PANTOPRAZOLE 40 MG/10 ML VIAL IVP SCH (10:02)
[2019-05-10] MEDS: DOCUSATE 100 MG CAP PO SCH ×2 (12:11→20:21)
--- NOTE | 2019-05-10 12:29 | P.CONS ---
History of Present Illness - Reason for Consult Consult date: 05/10/19 Diverticulitis Requesting physician: Marcellus Khan - Chief Complaint Abdominal pain - History of Present Illness 68-year-old female with a history of extensive abdominal surgery perforated diverticulitis 2012 with colostomy reversal admitted with acute abdominal pain. Recently hospitalized and in April CT abdomen and pelvis in April 29 reported sigmoid diverticulitis placed on outpatient antibiotics Augmentin and Flagyl without improvement in abdominal pain. Denies hematemesis hematochezia or melena. Admission CT abdomen no sign of acute abdomen and pelvis. No evidence of significant diverticular disease. No evidence of obstruction. White count 10.9 on admission presently 7.7. Hemoglobin 11.6. ESR 24. CRP 12.4. Afebrile. Patient is passing nonbloody bowel movements but no flatus. She feels bloated and gassy. Last colonoscopy prior to 2012. Review of Systems Constitutional: Denies fever, chills, sweats, weight gain, or loss. HEENT: Negative for migraines, blurred vision or loss, earaches, drainage, tinnitus, oral mucosal lesions, dysphagia, or odynophagia. CARDIAC: Negative for chest pain, arrhythmias, or palpitation. RESPIRATORY: Negative for shortness of breath, hemoptysis, cough, or sputum production. GI: See HPI for pertinent findings. : Negative for hematuria, urgency, frequency, polyuria, or dysuria. GYNc: Denies possibility of . Negative vaginal discharge. MUSCULOSKELETAL: Negative for muscle aches, swelling, arthritis, and arthralgias. NEUROLOGIC: Negative for stroke or TIA. ENDOCRINE: Negative for thyroid problems. SKIN: Negative for rash or itching. PSYCHIATRIC: Negative history for depression and anxiety Past Medical History Additional Past Medical History / Comment(s): dizziness,"low BP left arm due to blockage"; restless leg, varicose veins, arthritis, 4cm aortic aneuresym- following up with dentist. History of Any Multi-Drug Resistant Organisms: None Reported Past Surgical History: Appendectomy, Bowel Resection, Cholecystectomy, Hernia Repair, Hysterectomy Additional Past Surgical History / Comment(s): Colostomy and reversal; Col onoscopy, Cataract removal, bladder sling, Past Anesthesia/Blood Transfusion Reactions: No Reported Reaction Past Psychological History: No Psychological Hx Reported Smoking Status: Current every day smoker Past Alcohol Use History: None Reported Additional Past Alcohol Use History / Comment(s): has smoked 1/2 ppd for about 45 years Past Drug Use History: None Reported - Past Family History Mother Family Medical History: No Reported History Medications and Allergies Home Medications Medication Instructions Recorded Confirmed Type oxyCODONE-APAP 10-325MG [Percocet 0.5 tab PO HS 04/29/19 05/09/19 History 10-325 mg] Amoxicillin/Potassium Clav 1 tab PO BID 05/09/19 05/09/19 History [Augmentin 875-125 Tablet] Allergies Allergy/AdvReac Type Severity Reaction Status Date / Time adhesive tape Allergy Severe TURNS SKIN Verified 05/09/19 18:02 BLACK AND BLUE WITH RASH AROUND AREA lactose Allergy Nausea & Verified 05/09/19 18:02 Vomiting & Diarrhea tetracycline AdvReac Mild Nausea & Verified 05/09/19 18:02 Vomiting codeine AdvReac Nausea & Verified 05/09/19 18:02 Vomiting metronidazole [From Flagyl] AdvReac nausea Verified 05/09/19 19:41 vomiting diarrhea Physical Exam Vitals: Vital Signs Temp Pulse Pulse Resp BP BP Pulse Ox 05/10/19 08:37 98.0 F 70 20 94/59 95 05/09/19 23:00 98.3 F 72 18 129/64 100 05/09/19 19:46 97.2 F L 78 18 119/59 100 05/09/19 19:18 97.8 F 78 16 132/70 98 05/09/19 17:16 98.8 F 80 18 113/77 95 Intake and Output 05/09/19 05/10/19 05/10/19 22:59 06:59 14:59 Intake Total 480 0 Balance 480 0 Intake: Oral 480 0 Other: # Voids 1 1 # Bowel Movements 1 Weight 77.836 kg General appearance: The patient is alert, oriented, in no acute distress. HET: Head is normocephalic and atraumatic. Pupils are equal and reactive. Oropharynx is clear without lesions. Neck: Supple without lymphadenopathy. Trachea midline. Heart: S1 S2. Regular rate and rhythm. Lungs: No crackles or wheezes are heard. Abdomen: Soft, left lower quadrant tenderness bloated with bowel sounds. No peritoneal signs. No palpable organomegaly or masses. Extremities: Normal skin color and turgor. No cyanosis, rash, ulceration, cl ubbing, or edema. Radial and pedal pulses are 2/4 bilaterally. Neurological: No focal deficits. Strength and sensation are grossly intact. Results CBC & Chem 7: 05/10/19 06:22 05/10/19 06:22 Labs: Abnormal Lab Results - Last 24 Hours (Table) 05/09/19 05/09/19 05/09/19 Range/Units 17:41 17:41 17:41 WBC 10.9 H (3.8-10.6) k/uL ESR 24 H (0-20) mm/hr Chloride (98-107) mmol/L Glucose 119 H (74-99) mg/dL Calcium (8.4-10.2) mg/dL C-Reactive Protein (<10.0) mg/L Urine Blood (Negative) Ur Leukocyte Esterase (Negative) Ur Squamous Epith Cells (0-4) /hpf Amorphous Sediment (None) /hpf Urine Mucus (None) /hpf 05/09/19 05/09/19 05/10/19 Range/Units 17:41 17:57 06:22 WBC (3.8-10.6) k/uL ESR (0-20) mm/hr Chloride 108 H (98-107) mmol/L Glucose (74-99) mg/dL Calcium 8.1 L (8.4-10.2) mg/dL C-Reactive Protein 12.4 H (<10.0) mg/L Urine Blood Small H (Negative) Ur Leukocyte Esterase Trace H (Negative) Ur Squamous Epith Cells 6 H (0-4) /hpf Amorphous Sediment Rare H (None) /hpf Urine Mucus Occasional H (None) /hpf Microbiology - Last 24 Hours (Table) 05/09/19 17:57 Urine Culture - Preliminary Urine,Voided CT scan - abdomen: report reviewed (Dr. Rivera) Assessment and Plan (1) Abdominal pain Narrative/Plan: 68-year-old female with a history of multiple abdominal surgeries perforated diverticulitis with colostomy and reversal recently hospitalized with acute sigmoid diverticulitis without abscess or free air maintained on outpatient therapy with no clinical improvement. Admitted with acute bilateral left lower abdominal pain repeat CT imaging reported no evidence of acute diverticulitis. Current Visit: Yes Status: Acute Code(s): R10.9 - UNSPECIFIED ABDOMINAL PAIN SNOMED Code(s): 92231878 Plan: 1. Recommend general surgical consult. Agree with IV antibiotics. Patient r eceiving clear liquids. CT reviewed no evidence of significant diverticular disease or diverticulitis. Still reporting bilateral lower abdominal/LLQ pain will order abdominal xrays. Thank you for this kind referral and the opportunity to participate in the care of your patient. This consultation was discussed with Dr. Rivera. The impression and plan of care have been directed as dictated.
--- NOTE | 2019-05-10 13:53 | P.GSCN ---
History of Present Illness Consult date: 05/10/19 Reason for Consult: abdominal pain Requesting physician: Marcellus Khan History of present illness: CHIEF COMPLAINT: abdominal pain HISTORY OF PRESENT ILLNESS: 68-year-old female who presented to emergency room with a chief complaint of abdominal pain. Patient was recently seen in the emergency room on 04/29/2019 and diagnosed with diverticulitis. She was discharged home on antibiotics. She states she was unable to tolerate the Flagyl and notified her PCP who changed her to Augmentin. Patient states she completed 5 days of her Augmentin prescription and was feeling better and then suddenly began having more severe abdominal pain. She reports bowel movement this morning but states it was hard and she feels constipated. Denies nausea or vomiting. WBC on admission 10.9. Repeat 7.7. vital signs stable. She is afebrile. CT scan negative for acute diverticulitis. PAST MEDICAL HISTORY: See list. PAST SURGICAL HISTORY: See list. SOCIAL HISTORY: No illicit drug use. REVIEW OF SYSTEMS: CONSTITUTIONAL: Denies fever or chills. HEENT: Denies blurred vision, vision changes, or eye pain. Denies hemoptysis CARDIOVASCULAR: Denies chest pain or pressure. RESPIRATORY: No shortness of breath. GASTROINTESTINAL: Refer to HPI for pertinent findings HEMATOLOGIC: Denies bleeding disorders. GENITOURINARY: Denies any blood in urine. SKIN: Denies pruitis. Denies rash. PHYSICAL EXAM: VITAL SIGNS: Reviewed. GENERAL: Well-developed in no acute distress. HEENT: No sclera icterus. Extraocular movements grossly intact. Moist buccal mucosa. Head is atraumatic, normocephalic. ABDOMEN: Soft. Nondistended. Tenderess to palpation of lower abdomen. Old surgical scars noted. NEUROLOGIC: Alert and oriented. Cranial nerves II through XII grossly intact. ASSESSMENT: 1. Abdominal pain 2. Recent diagnosis of diverticulitis 3. History of diverticulitis with perforation 4. History of bowel resection with colostomy and subsequent reversal 5. History of multiple hernia repairs 6. History of colovaginal fistula PLAN: 1. Continue clear liquid diet 2. Continue IV antibiotics 3. Further recommendations pending evaluation by Dr. Collins this afternoon Nurse practitioner note has been reviewed by physician. Signing provider agrees with the documented findings, assessment, and plan of care. 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 History of Any Multi-Drug Resistant Organisms: None Reported Past Surgical History: Appendectomy, Bowel Resection, Cholecystectomy, Hernia Repair, Hysterectomy Additional Past Surgical History / Comment(s): Colostomy and reversal; Colonoscopy, Cataract removal, bladder sling, Past Anesthesia/Blood Transfusion Reactions: No Reported Reaction Past Psychological History: No Psychological Hx Reported Smoking Status: Current every day smoker Past Alcohol Use History: None Reported Additional Past Alcohol Use History / Comment(s): has smoked 1/2 ppd for about 45 years Past Drug Use History: None Reported - Past Family History Mother Family Medical History: No Reported History Medications and Allergies Home Medications Medication Instructions Recorded Confirmed Type oxyCODONE-APAP 10-325MG [Percocet 0.5 tab PO HS 04/29/19 05/09/19 History 10-325 mg] Amoxicillin/Potassium Clav 1 tab PO BID 05/09/19 05/09/19 History [Augmentin 875-125 Tablet] Allergies Allergy/AdvReac Type Severity Reaction Status Date / Time adhesive tape Allergy Severe TURNS SKIN Verified 05/09/19 18:02 BLACK AND BLUE WITH RASH AROUND AREA lactose Allergy Nausea & Verified 05/09/19 18:02 Vomiting & Diarrhea tetracycline AdvReac Mild Nausea & Verified 05/09/19 18:02 Vomiting codeine AdvReac Nausea & Verified 05/09/19 18:02 Vomiting metronidazole [From Flagyl] AdvReac nausea Verified 05/09/19 19:41 vomiting diarrhea Surgical - Exam Vital Signs Temp Pulse Resp BP Pulse Ox 98.8 F 80 18 113/77 95 05/09/19 17:16 05/09/19 17:16 05/09/19 17:16 05/09/19 17:16 05/09/19 17:16 Results - Labs 05/10/19 06:22 05/10/19 06:22 Abnormal Lab Results - Last 24 Hours (Table) 05/09/19 05/09/19 05/09/19 Range/Units 17:41 17:41 17:41 WBC 10.9 H (3.8-10.6) k/uL ESR 24 H (0-20) mm/hr Chloride (98-107) mmol/L Glucose 119 H (74-99) mg/dL Calcium (8.4-10.2) mg/dL C-Reactive Protein (<10.0) mg/L Urine Blood (Negative) Ur Leukocyte Esterase (Negative) Ur Squamous Epith Cells (0-4) /hpf Amorphous Sediment (None) /hpf Urine Mucus (None) /hpf 05/09/19 05/09/19 05/10/19 Range/Units 17:41 17:57 06:22 WBC (3.8-10.6) k/uL ESR (0-20) mm/hr Chloride 108 H (98-107) mmol/L Glucose (74-99) mg/dL Calcium 8.1 L (8.4-10.2) mg/dL C-Reactive Protein 12.4 H (<10.0) mg/L Urine Blood Small H (Negative) Ur Leukocyte Esterase Trace H (Negative) Ur Squamous Epith Cells 6 H (0-4) /hpf Amorphous Sediment Rare H (None) /hpf Urine Mucus Occasional H (None) /hpf Microbiology - Last 24 Hours (Table) 05/09/19 17:57 Urine Culture - Preliminary Urine,Voided Diabetes panel 05/09/19 05/10/19 Range/Units 17:41 06:22 Sodium 140 142 (137-145) mmol/L Potassium 4.2 4.3 (3.5-5.1) mmol/L Chloride 103 108 H (98-107) mmol/L Carbon Dioxide 27 29 (22-30) mmol/L BUN 15 11 (7-17) mg/dL Creatinine 0.88 0.87 (0.52-1.04) mg/dL Glucose 119 H 86 (74-99) mg/dL Calcium 8.8 8.1 L (8.4-10.2) mg/dL AST 22 (14-36) U/L ALT 15 (9-52) U/L Alkaline Phosphatase 86 (38-126) U/L Total Protein 7.2 (6.3-8.2) g/dL Albumin 4.1 (3.5-5.0) g/dL Calcium panel 05/09/19 05/10/19 Range/Units 17:41 06:22 Calcium 8.8 8.1 L (8.4-10.2) mg/dL Albumin 4.1 (3.5-5.0) g/dL Pituitary panel 05/09/19 05/10/19 Range/Units 17:41 06:22 Sodium 140 142 (137-145) mmol/L Potassium 4.2 4.3 (3.5-5.1) mmol/L Chloride 103 108 H (98-107) mmol/L Carbon Dioxide 27 29 (22-30) mmol/L BUN 15 11 (7-17) mg/dL Creatinine 0.88 0.87 (0.52-1.04) mg/dL Glucose 119 H 86 (74-99) mg/dL Calcium 8.8 8.1 L (8.4-10.2) mg/dL Adrenal panel 05/09/19 05/10/19 Range/Units 17:41 06:22 Sodium 140 142 (137-145) mmol/L Potassium 4.2 4.3 (3.5-5.1) mmol/L Chloride 103 108 H (98-107) mmol/L Carbon Dioxide 27 29 (22-30) mmol/L BUN 15 11 (7-17) mg/dL Creatinine 0.88 0.87 (0.52-1.04) mg/dL Glucose 119 H 86 (74-99) mg/dL Calcium 8.8 8.1 L (8.4-10.2) mg/dL Total Bilirubin 0.5 (0.2-1.3) mg/dL AST 22 (14-36) U/L ALT 15 (9-52) U/L Alkaline Phosphatase 86 (38-126) U/L Total Protein 7.2 (6.3-8.2) g/dL Albumin 4.1 (3.5-5.0) g/dL
--- NOTE | 2019-05-10 14:42 | PN ---
PROGRESS NOTE DATE OF SERVICE: 05/10/2019 This is a 68-year-old woman who was admitted with abdominal pain, had features of acute diverticulitis. The patient still complaining of severe abdominal pain, sharp in the lower part of the abdomen. Gastroenterology and Surgery are following the patient closely. No chest pain. No palpitations. No fever. PHYSICAL EXAM: Alert and oriented x3. Pulse 70, blood pressure 90/59, respiration 20, temperature 98 degrees, pulse ox 94% on room air. HEENT: Conjunctivae normal. NECK: No jugular venous distension. CARDIOVASCULAR SYSTEM: S1, S2, muffled. RESPIRATORY: Breath sounds diminished at the bases, no rhonchi, no crackles. ABDOMEN: Soft, obese mild diffuse tenderness. No guarding. No rigidity. No mass palpable. No ascites. LEGS: No edema, no swelling. NERVOUS SYSTEM: No focal deficits. LABS: CBC within normal limits. Sodium 140, potassium 4.3. ESR is 24. ASSESSMENT: 1. Abdominal pain for evaluation, possible acute diverticulitis with failure of outpatient treatment. 2. Increased WBC. 3. History of recent diverticulitis. 4. History of appendectomy. 5. History of bowel resection, history of hernia repair. 6. History of hysterectomy. 7. History of methicillin-resistant Staphylococcus aureus.. 8. History of nicotine dependence, continued ongoing. 9. History of abdominal aortic aneurysm 4 cm. RECOMMENDATION: Recommend to continue current management. Continue with antibiotics. Otherwise, I would recommend pain medications. The prognosis is guarded because of multiple complex medical issues. We will follow the patient closely with multiple consultants. Please note, the patient is unable to tolerate Flagyl. Further recommendations to follow. MMODL / IJN: [id number] /
[2019-05-10] MEDS: PIPERACILLIN-TAZOBACTAM 3.375 GM in SODIUM CHLORIDE 0.9% 100 ML IVPB SCH (16:08)
--- NOTE | 2019-05-10 16:44 | XR ---
EXAMINATION TYPE: XR abdomen complete w decub DATE OF EXAM: 05/10/2019 COMPARISON: CT abdomen pelvis 05/09/2019 HISTORY: Quadrant pain TECHNIQUE: Left lateral decubitus supine and upright views the abdomen were obtained. FINDINGS: No free air is evident. Colonic bowel gas is present. Some mild fecal debris is throughout the colon. Psoas margins are normal. No suspicious air-fluid levels or differential air-fluid levels are present . No free air is present. IMPRESSION: 1. Mild Fecal retention in otherwise normal acute abdominal series.
[2019-05-11] MEDS: PIPERACILLIN-TAZOBACTAM 3.375 GM in SODIUM CHLORIDE 0.9% 100 ML IVPB SCH ×2 (00:02→08:52)
[2019-05-11 00:04] VITALS: RESP 18
[2019-05-11 08:29] LABS: Basophils % (A) 1 %; Eosinophils # (A) 0.2 k/uL (0-0.7); Eosinophils % (A) 4 %; HCT 36.2 % (34.0-46.0); Lymphocytes # (A) 2.3 k/uL (1.0-4.8); Lymphocytes % (A) 38 %; MCH 30.2 pg (25.0-35.0); MCHC 33.2 g/dL (31.0-37.0); MCV 91.1 fL (80.0-100.0); Mean Platelet Volume 9.2; Monocytes # (A) 0.4 k/uL (0-1.0); Monocytes % (A) 6 %; Neutrophils % (A) 49 %; Platelet Count 195 k/uL (150-450); RBC 3.98 m/uL (3.80-5.40); RDW 14.2 % (11.5-15.5); WBC 6.2 k/uL (3.8-10.6)
[2019-05-11 08:37] LABS: Calcium 8.4 mg/dL (8.4-10.2); Potassium 4.3 mmol/L (3.5-5.1)
[2019-05-11] MEDS: PANTOPRAZOLE 40 MG/10 ML VIAL IVP SCH (08:53)
[2019-05-11] MEDS: DOCUSATE 100 MG CAP PO SCH (08:53)
[2019-05-11] MEDS: ENOXAPARIN 40 MG/0.4 ML SYRINGE SQ SCH (08:53)
[2019-05-11] MEDS ORDERED: SENNOSIDES 8.6 MG TAB PO SCH (12:00)
--- NOTE | 2019-05-11 12:17 | P.PN ---
Subjective Progress Note Date: 05/11/19 CHIEF COMPLAINT: abdominal pain HISTORY OF PRESENT ILLNESS: Patient examined this morning at the bedside. She denies abdominal pain. Reports bowel movements this morning. Patient states she may have been having gas pains. She denies nausea or vomiting. Tolerating liquid diet. She is hoping to be discharged home today. PHYSICAL EXAM: VITAL SIGNS: Reviewed. GENERAL: Well-developed in no acute distress. HEENT: No sclera icterus. Extraocular movements grossly intact. Moist buccal mucosa. Head is atraumatic, normocephalic. ABDOMEN: Soft. Nondistended. Nontender. Old surgical scars noted. NEUROLOGIC: Alert and oriented. Cranial nerves II through XII grossly intact. ASSESSMENT: 1. Abdominal pain 2. Recent diagnosis of diverticulitis 3. History of diverticulitis with perforation 4. History of bowel resection with colostomy and subsequent reversal 5. History of multiple hernia repairs 6. History of colovaginal fistula PLAN: Advance diet. If patient tolerates, she may be discharged home from a surgical perspective. Nurse practitioner note has been reviewed by physician. Signing provider agrees with the documented findings, assessment, and plan of care. Objective - Vital Signs Vital signs: Vital Signs Temp 98.0 F 05/11/19 08:34 Pulse 65 05/11/19 08:34 Resp 18 05/11/19 08:34 BP 107/67 05/11/19 08:34 Pulse Ox 95 05/11/19 08:34 Intake & Output 05/10/19 05/11/19 05/11/19 18:59 06:59 18:59 Intake Total 100 580 Balance 100 580 Intake: Oral 100 580 Other: # Voids 1 1 # Bowel Movements 1 - Labs CBC & Chem 7: 05/11/19 08:18 05/11/19 08:18 Labs: Abnormal Lab Results - Last 24 Hours (Table) 05/11/19 Range/Units 08:18 Chloride 110 H (98-107) mmol/L Microbiology - Last 24 Hours (Table) 05/09/19 17:41 Blood Culture - Preliminary Blood No Growth after 24 hours 05/09/19 17:57 Urine Culture - Final Urine,Voided
[2019-05-11 12:44] VITALS: BP 104/59; PULSE 66; TEMP 98.2
--- NOTE | 2019-05-11 14:31 | P.PN ---
Subjective Progress Note Date: 05/11/19 Principal diagnosis: Abdominal pain Passing bowel movements. Abdominal pain improved requesting discharge. Abdominal x-rays yesterday reported stool retention. Afebrile. Objective - Vital Signs Vital signs: Vital Signs Temp 98.2 F 05/11/19 12:03 Pulse 66 05/11/19 12:03 Resp 18 05/11/19 12:03 BP 104/59 05/11/19 12:03 Pulse Ox 95 05/11/19 12:03 Intake & Output 05/10/19 05/11/19 05/11/19 18:59 06:59 18:59 Intake Total 100 580 Balance 100 580 Intake: Oral 100 580 Other: # Voids 1 1 # Bowel Movements 1 - Exam General appearance: The patient is alert, oriented, in no acute distress. HET: Head is normocephalic and atraumatic. Pupils are equal and reactive. Oropharynx is clear without lesions. Neck: Supple without lymphadenopathy. Trachea midline. Heart: S1 S2. Regular rate and rhythm. Lungs: No crackles or wheezes are heard. Abdomen: Soft,. Mild left lower abdominal tenderness, nondistended with bowel sounds. No peritoneal signs. No palpable organomegaly or masses. Extremities: Normal skin color and turgor. No cyanosis, rash, ulceration, clubbing, or edema. Radial and pedal pulses are 2/4 bilaterally. Neurological: No focal deficits. Strength and sensation are grossly intact. - Labs CBC & Chem 7: 05/11/19 08:18 05/11/19 08:18 Labs: Abnormal Lab Results - Last 24 Hours (Table) 05/11/19 Range/Units 08:18 Chloride 110 H (98-107) mmol/L Microbiology - Last 24 Hours (Table) 05/09/19 17:41 Blood Culture - Preliminary Blood No Growth after 24 hours 05/09/19 17:57 Urine Culture - Final Urine,Voided Assessment and Plan (1) Abdominal pain Narrative/Plan: 68-year-old female with a history of multiple abdominal surgeries perforated diverticulitis with colostomy and reversal recently hospitalized with acute sigmoid diverticulitis without abscess or free air maintained on outpatient the [facility] with no clinical improvement. Admitted with acute bilateral left lower abdominal pain repeat CT imaging reported no evidence of acute diverticulitis. Abdominal pain could be exacerbated by underlying constipation. Current Visit: Yes Status: Acute Code(s): R10.9 - UNSPECIFIED ABDOMINAL PAIN SNOMED Code(s): 96638025 Plan: 1. Discharge per medicine. Avoid constipation. Daily stool softeners. Assessment and plan a care discussed with Dr. Rivera
== END 2019-05-11 14:20 | disposition home or self-care (01) | DRG 392 ==
LOC: EC 17:09 → 6PED 18:39
PROVIDERS: ADMIT Hospitalist; ATTEND Hospitalist
DX: K59.00 Constipation, unspecified (principal); F17.200 Nicotine dependence, unspecified, uncomplicated; G25.81 Restless legs syndrome; K57.30 Diverticulosis of large intestine without perforation or abscess without bleeding; I83.90 Asymptomatic varicose veins of unspecified lower extremity; M19.90 Unspecified osteoarthritis, unspecified site; I71.4 Abdominal aortic aneurysm, without rupture; Z86.14 Personal history of Methicillin resistant Staphylococcus aureus infection; Z90.49 Acquired absence of other specified parts of digestive tract; Z90.710 Acquired absence of both cervix and uterus; Z79.891 Long term (current) use of opiate analgesic; Z88.1 Allergy status to other antibiotic agents; Z88.5 Allergy status to narcotic agent; Z91.018 Allergy to other foods; Z91.048 Other nonmedicinal substance allergy status; Z98.42 Cataract extraction status, left eye; Z98.41 Cataract extraction status, right eye; Z96.1 Presence of intraocular lens
CPT/HCPCS: 36415; 74021; 74177; 80048; 80053; 81001; 82150; 83605; 83690; 85025; 85652; 86140; 87040; 87086; 96361; 96374; 96375; 99285

== ENCOUNTER 2019-05-30 13:47 | Emergency (ER) | payer MEDICARE, OTHER ==
[2019-05-30 13:54] VITALS: RESP 18
[2019-05-30] MEDS ORDERED: SODIUM CHLORIDE 0.9% 500 ML 500 ML IV STA (14:40)
[2019-05-30] MEDS ORDERED: KETOROLAC 30 MG/ML 1 ML VIAL IVP STA (14:41)
--- NOTE | 2019-05-30 15:09 | ED ---
General Adult HPI - General Chief complaint: Abdominal Pain Stated complaint: Abd pain Time Seen by Provider: 05/30/19 14:17 Source: patient, RN notes reviewed Mode of arrival: ambulatory Limitations: no limitations - History of Present Illness Initial comments: 68-year-old female with a past medical history of restless leg syndrome, PAD, arthritis, diverticulitis, colostomy and reversal presents to the emergency department for abdominal pain. Patient states this pain has been ongoing intermittently for years but has worsened in the past month and more acutely in the past 3 days. Patient states she was diagnosed with diverticulitis at the end of April. Patient had a CT at that time that showed diverticulitis without abscess within the sigmoid colon. Patient had a repeat CT on 05/09/2019 3 weeks ago that showed no sign of acute abdomen or pelvis. No evidence of any significant diverticular disease. States that she has had continuing pain despite antibiotic therapy. He said the pain is worsened again in the past 3 days. States she does not think it is diverticulitis. States she is passing small pellets of stool and feels like her abdomen is full of gas patient does admit to Percocet use as well as history of constipation currently taking senna S. Denies vomiting. Denies fevers or chills. Patient has no other complaints at this time including shortness of breath, chest pain, nausea or vomiting, headache, or visual changes. - Related Data Home Medications Medication Instructions Recorded Confirmed oxyCODONE-APAP 10-325MG [Percocet 0.5 tab PO HS 04/29/19 05/30/19 10-325 mg] Lactose-Reduced Food [Boost] 237 ml PO DAILY 05/30/19 05/30/19 Previous Rx's Medication Instructions Recorded Cephalexin [Keflex] 500 mg PO TID 7 Days cap 05/30/19 Allergies Allergy/AdvReac Type Severity Reaction Status Date / Time adhesive tape Allergy Severe TURNS SKIN Verified 05/30/19 15:58 BLACK AND BLUE WITH RASH AROUND AREA lactose Allergy Nausea & Verified 05/30/19 15:58 Vomiting & Diarrhea tetracycline AdvReac Mild Nausea & Verified 05/30/19 15:58 Vomiting codeine AdvReac Nausea & Verified 05/30/19 15:58 Vomiting metronidazole [From Flagyl] AdvReac nausea Verified 05/30/19 15:58 vomiting diarrhea Review of Systems ROS Statement: Those systems with pertinent positive or pertinent negative responses have been documented in the HPI. ROS Other: All systems not noted in ROS Statement are negative. 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 diverticulitis History of Any Multi-Drug Resistant Organisms: None Reported Past Surgical History: Appendectomy, Bladder Surgery, Bowel Resection, Cholecystectomy, Hernia Repair, Hysterectomy Additional Past Surgical History / Comment(s): Colostomy and reversal; Colonoscopy, Cataract removal Past Anesthesia/Blood Transfusion Reactions: No Reported Reaction Past Psychological History: No Psychological Hx Reported Smoking Status: Current every day smoker Past Alcohol Use History: None Reported Past Drug Use History: None Reported - Past Family History Mother Family Medical History: No Reported History General Exam Limitations: no limitations General appearance: alert, in no apparent distress Head exam: Present: atraumatic, normocephalic, normal inspection Eye exam: Present: normal appearance, PERRL, EOMI. Absent: scleral icterus, conjunctival injection, periorbital swelling ENT exam: Present: normal exam, mucous membranes moist Neck exam: Present: normal inspection, full ROM. Absent: tenderness, meningismus, lymphadenopathy Respiratory exam: Present: normal lung sounds bilaterally. Absent: respiratory distress, wheezes, rales, rhonchi, stridor Cardiovascular Exam: Present: regular rate, normal rhythm, normal heart sounds. Absent: systolic murmur, diastolic murmur, rubs, gallop, clicks GI/Abdominal exam: Present: soft, tenderness (Diffuse abdominal tenderness without guarding), normal bowel sounds. Absent: distended, guarding, rebound, rigid Neurological exam: Present: alert, oriented X3, CN II-XII intact Psychiatric exam: Present: normal affect, normal mood Course Vital Signs 05/30/19 13:49 Temperature 98.8 F Pulse Rate 89 Respiratory 18 Rate Blood Pressure 112/68 O2 Sat by Pulse 96 Oximetry Medical Decision Making - Medical Decision Making 68-year-old female with a past medical history of restless leg syndrome, PhD, arthritis, diverticulitis presents for abdominal pain. Patient has a resolved diverticulitis in the past 3 weeks demonstrate a basic computed tomography scan. States that she started to have pain 3 days ago and has been producing pellets of bowel movements. States she takes Percocet. Patient states she is supposed to take milk of magnesia nightly but does not do this. On evaluation patient has diffuse abdominal tenderness. I did recommend CAT scan at this time the patient adamantly refuses stating this does not feel like diverticulitis and she thinks she is constipated. CBC and CMP are unremarkable. Urine does show evidence of infection. Culture pending. She will be treated with Keflex. X- ray shows a correlate for fecal stasis. I did strongly recommend enema however patient refuses. States she has enema administration kids at home and she will give this to resolve. She states she also started her milk of magnesia every n ight. sHe'll follow up with GI and primary care. She'll return here if she is any worsening symptoms. - Lab Data Result diagrams: 05/30/19 14:51 05/30/19 14:51 Lab Results 05/30/19 05/30/19 05/30/19 Range/Units 14:51 14:51 15:00 WBC 9.9 (3.8-10.6) k/uL RBC 4.50 (3.80-5.40) m/uL Hgb 13.3 (11.4-16.0) gm/dL Hct 40.7 (34.0-46.0) % MCV 90.5 (80.0-100.0) fL MCH 29.6 (25.0-35.0) pg MCHC 32.7 (31.0-37.0) g/dL RDW 13.7 (11.5-15.5) % Plt Count 240 (150-450) k/uL Neutrophils % 58 % Lymphocytes % 29 % Monocytes % 8 % Eosinophils % 1 % Basophils % 0 % Neutrophils # 5.8 (1.3-7.7) k/uL Lymphocytes # 2.8 (1.0-4.8) k/uL Monocytes # 0.8 (0-1.0) k/uL Eosinophils # 0.1 (0-0.7) k/uL Basophils # 0.0 (0-0.2) k/uL Sodium 139 (137-145) mmol/L Potassium 4.6 (3.5-5.1) mmol/L Chloride 101 (98-107) mmol/L Carbon Dioxide 28 (22-30) mmol/L Anion Gap 10 mmol/L BUN 15 (7-17) mg/dL Creatinine 0.88 (0.52-1.04) mg/dL Est GFR (CKD-EPI)AfAm 78 (>60 ml/min/1.73 sqM) Est GFR (CKD-EPI)NonAf 67 (>60 ml/min/1.73 sqM) Glucose 103 H (74-99) mg/dL Calcium 9.6 (8.4-10.2) mg/dL Total Bilirubin 1.1 (0.2-1.3) mg/dL AST 32 (14-36) U/L ALT 24 (9-52) U/L Alkaline Phosphatase 96 (38-126) U/L Total Protein 7.7 (6.3-8.2) g/dL Albumin 4.3 (3.5-5.0) g/dL Amylase 42 (30-110) U/L Lipase 41 (23-300) U/L Urine Color Yellow Urine Appearance Clear (Clear) Urine pH 6.5 (5.0-8.0) Ur Specific [place]ola 1.011 (1.001-1.035) Urine Protein Negative (Negative) Urine Glucose (UA) Negative (Negative) Urine Ketones Negative (Negative) Urine Blood Small H (Negative) Urine Nitrite Negative (Negative) Urine Bilirubin Negative (Negative) Urine Urobilinogen <2.0 (<2.0) mg/dL Ur Leukocyte Esterase Moderate H (Negative) Urine RBC 3 (0-5) /hpf Urine WBC 29 H (0-5) /hpf Ur Squamous Epith Cells 3 (0-4) /hpf Amorphous Sediment Rare H (None) /hpf Urine Mucus Occasional H (None) /hpf Disposition Clinical Impression: Constipation, Urinary tract infection, Abdominal pain Disposition: HOME SELF-CARE Condition: Good Instructions (If sedation given, give patient instructions): Abdominal Pain (ED), Urinary Tract Infection in Women (ED), Constipation (ED) Additional Instructions: Please take antibiotic as directed. Use enema and milk of magnesia as directed. Please follow-up with your primary care provider as well as GI in 1-2 days. Return here to the emergency department if you have any worsening symptoms. Prescriptions: Cephalexin [Keflex] 500 mg PO TID 7 Days cap Is patient prescribed a controlled substance at d/c from ED?: No Referrals: Chandan Lee MD [Primary Care Provider] - 1-2 days Time of Disposition: 16:33
[2019-05-30 15:14] LABS: Albumin 4.3 g/dL (3.5-5.0); Calcium 9.6 mg/dL (8.4-10.2); Potassium 4.6 mmol/L (3.5-5.1); Total Bilirubin 1.1 mg/dL (0.2-1.3); Total Protein 7.7 g/dL (6.3-8.2)
[2019-05-30 15:25] LABS: Amorphous Sediment,Urine Rare /hpf; Appearance,Urine Clear (Clear); Bilirubin,Urine Negative (Negative); Blood,Urine Small (Negative); Color,Urine Yellow; Glucose,Urine (UA) Negative (Negative); Ketones,Urine Negative (Negative); Leukocyte Esterase,Urine Moderate (Negative); Mucus,Urine Occasional /hpf; Nitrite,Urine Negative (Negative); PH, Urine 6.5 (5.0-8.0); Protein,Urine Negative (Negative); RBC,Urine 3 /hpf (0-5); Specific Gravity,Urine 1.011 (1.001-1.035); Squamous Epithelial Cell,Urine 3 /hpf (0-4); Urobilinogen,Urine <2.0 mg/dL (<2.0); WBC,Urine 29 /hpf (0-5)
--- NOTE | 2019-05-30 15:41 | XR ---
KUB HISTORY: Abdominal pain and constipation KUB and 2 images Correlation to abdomen dated 05/10/2018, CT 05/09/2019 Surgical clips are present in the right upper quadrant. Lung bases are clear. No evident bowel obstru ction or pneumoperitoneum. Bone mineralization is normal. Degenerative disc changes are present in th e visualized spine. There are sclerotic vascular calcifications. Retained fecal debris is noted. IMPRESSION: Correlate for fecal stasis.
[2019-05-30 15:50] LABS: Basophils % (A) 0 %; Eosinophils # (A) 0.1 k/uL (0-0.7); Eosinophils % (A) 1 %; HCT 40.7 % (34.0-46.0); HGB 13.3 gm/dL (11.4-16.0); Lymphocytes # (A) 2.8 k/uL (1.0-4.8); Lymphocytes % (A) 29 %; MCH 29.6 pg (25.0-35.0); MCHC 32.7 g/dL (31.0-37.0); MCV 90.5 fL (80.0-100.0); Mean Platelet Volume 8.5; Monocytes # (A) 0.8 k/uL (0-1.0); Monocytes % (A) 8 %; Neutrophils # (A) 5.8 k/uL (1.3-7.7); Neutrophils % (A) 58 %; Platelet Count 240 k/uL (150-450); RDW 13.7 % (11.5-15.5); WBC 9.9 k/uL (3.8-10.6)
[2019-05-30 16:50] VITALS: BP 124/87; PULSE 87; TEMP 98
== END 2019-05-30 16:50 | disposition home or self-care (01) ==
LOC: EC 13:47
DX: K59.00 Constipation, unspecified (principal); N39.0 Urinary tract infection, site not specified; F17.200 Nicotine dependence, unspecified, uncomplicated; Z91.048 Other nonmedicinal substance allergy status; Z88.1 Allergy status to other antibiotic agents; Z88.5 Allergy status to narcotic agent; Z91.011 Allergy to milk products; Z90.49 Acquired absence of other specified parts of digestive tract; Z90.89 Acquired absence of other organs; Z90.710 Acquired absence of both cervix and uterus
CPT/HCPCS: 36415; 80053; 82150; 83690; 85025; 81001; 87086; 74018; 99284; 96374; 96361; J1885; 87077; 87186

== ENCOUNTER 2019-12-16 13:21 | Inpatient (IN) | payer MEDICARE, OTHER ==
[2019-12-16] MEDS ORDERED: SODIUM CHLORIDE 0.9% 1,000 ML IV ONE (14:38)
[2019-12-16] MEDS ORDERED: MORPHINE SULFATE 4 MG/ML SYRINGE IV STA (14:38)
--- NOTE | 2019-12-16 14:44 | ED ---
General Adult HPI - General Chief complaint: Urogenital Stated complaint: back pain/poss UTI Time Seen by Provider: 12/16/19 14:18 Source: patient, RN notes reviewed, old records reviewed Mode of arrival: wheelchair Limitations: no limitations - History of Present Illness Initial comments: 69-year-old female patient past history significant for 4 cm aortic aneurysm, appendectomy, cholecystectomy, colostomy with reversal presents to ED for chief complaint of back pain. Patient reports that approximately 5 days ago she began to experience lumbar and thoracic back pain without injury. Does report that it goes down her left leg. Feels similar to back pain she has expansion the past. Denies any paresthesias or loss of bowel or bladder control. Patient also reports that the last 2 days she has been experiencing some substernal chest discomfort at night. Denies any this time. States that she does also have urinary frequency and dysuria, believes that she does have a urinary tract infection. Denies any other complaints at this time. Systemic: Pt denies fatigue, fever/chills, rash. Pt denies weakness, night sweats, weight loss. Neuro: Pt denies headache, visual disturbances, syncope or pre-syncope. HEENT: Pt denies ocular discharge or irritation, otalgia, rhinorrhea, pharyngitis or notable lymphadenopathy. Cardiopulmonary: Pt denies heart palpitations, dyspnea on exertion. Abdominal/GI: Pt denies abdominal pain, n/v/d. : Denies new onset urinary or bowel incontinence. MSK: Pt denies myalgia, loss of strength or function in extremities. Neuro: Pt denies new onset weakness, paresthesias. - Related Data Home Medications Medication Instructions Recorded Confirmed oxyCODONE-APAP 10-325MG [Percocet 0.5 tab PO HS 04/29/19 05/30/19 10-325 mg] Lactose-Reduced Food [Boost] 237 ml PO DAILY 05/30/19 05/30/19 Previous Rx's Medication Instructions Recorded Cephalexin [Keflex] 500 mg PO TID 7 Days cap 05/30/19 Allergies Allergy/AdvReac Type Severity Reaction Status Date / Time adhesive tape Allergy Severe TURNS SKIN Verified 12/16/19 13:45 BLACK AND BLUE WITH RASH AROUND AREA lactose Allergy Nausea & Verified 12/16/19 13:45 Vomiting & Diarrhea tetracycline AdvReac Mild Nausea & Verified 12/16/19 13:45 Vomiting codeine AdvReac Nausea & Verified 12/16/19 13:45 Vomiting metronidazole [From Flagyl] AdvReac nausea Verified 12/16/19 13:45 vomiting diarrhea Review of Systems ROS Statement: Those systems with pertinent positive or pertinent negative responses have been documented in the HPI. ROS Other: All systems not noted in ROS Statement are negative. 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 diverticulitis History of Any Multi-Drug Resistant Organisms: None Reported Past Surgical History: Appendectomy, Bladder Surgery, Bowel Resection, Cholecystectomy, Hernia Repair, Hysterectomy Additional Past Surgical History / Comment(s): Colostomy and reversal; Colonoscopy, Cataract removal Past Anesthesia/Blood Transfusion Reactions: No Reported Reaction Past Psychological History: No Psychological Hx Reported Smoking Status: Current every day smoker Past Alcohol Use History: None Reported Past Drug Use History: None Reported - Past Family History Mother Family Medical History: No Reported History General Exam - General Exam Comments Initial Comments: Constitutional: NAD, AOX3, Pt has pleasant affect. HEENT: NC/AT, trachea midline, neck supple, no lymphadenopathy. Posterior pharynx non erythematous, without exudates. External ears appear normal, without discharge. Mucous membranes moist. Eyes PERRLA, EOM intact. There is no scleral icterus. No pallor noted. Cardiopulmonary: RRR, no murmurs, rubs or gallops, no JVD noted. Lungs CTAB in anterior and posterior christianson. No peripheral edema. Abdominal exam: Abdomen soft and non-distended. Abdomen mildly tender to palpation periumbilical region. Bowel sounds active in LLQ. No hepatospl enomegaly. No ecchymosis Neuro: CN II-XII grossly intact. No nuchal rigidity. No raccon eyes, no omore sign, no hemotympanum. No cervical spinal tenderness. MSK: Left paralumbar region mildly tender to palpation. Left straight leg raise is positive. No posterior calf tenderness bilaterally, homans sign negative bilaterally. Posterior tibialis and radial pulse +2 bilaterally. Sensation intact in upper and lower extremities. Full active ROM in upper and lower extremities, 5/5 stregnth. Limitations: no limitations Course Vital Signs 12/16/19 13:43 Temperature 98.7 F Pulse Rate 82 Respiratory 16 Rate Blood Pressure 112/72 O2 Sat by Pulse 96 Oximetry Medical Decision Making - Medical Decision Making 69-year-old female patient past history significant for 4 cm aortic aneurysm, appendectomy, cholecystectomy, colostomy with reversal presents to ED for chief complaint of back pain. Patient reports that approximately 5 days ago she began to experience lumbar and thoracic back pain without injury. Does report that it goes down her left leg. Feels similar to back pain she has expansion the past. Denies any paresthesias or loss of bowel or bladder control. Patient also reports that the last 2 days she has been experiencing some substernal chest discomfort at night. Denies any this time. States that she does also have urinary frequency and dysuria, believes that she does have a urinary tract infection. Denies any other complaints at this time. Patient also on the stable, afebrile. Physical exam displayed: Left paralumbar region mildly tender to palpation. Left straight leg raise is positive. No posterior calf tenderness bilaterally, homans sign negative bilaterally. Posterior tibialis and radial pulse +2 bilaterally. Laboratory investigations are unremarkable. Troponin is negative. CTA displayed no evidence for aneurysm. Atheromatous changes. Mild aneurysmal dilation right common iliac with small focal dissection. Case was discussed with Dr. Mckeon in vascular recommended aspirin and he'll evaluate patient in outpatient basis or inpatient patient will be admitted. Patient admitted for chest pain, serial troponins, cardiology evaluation. Case discussed in depth with Dr. Flores. - Lab Data Result diagrams: 12/16/19 15:20 12/16/19 15:20 Lab Results 12/16/19 12/16/19 12/16/19 Range/Units 15:20 15:20 15:20 WBC 9.2 (3.8-10.6) k/uL RBC 4.38 (3.80-5.40) m/uL Hgb 13.0 (11.4-16.0) gm/dL Hct 40.5 (34.0-46.0) % MCV 92.5 (80.0-100.0) fL MCH 29.7 (25.0-35.0) pg MCHC 32.1 (31.0-37.0) g/dL RDW 13.3 (11.5-15.5) % Plt Count 246 (150-450) k/uL Neutrophils % 49 % Lymphocytes % 28 % Monocytes % 7 % Eosinophils % 10 % Basophils % 3 % Neutrophils # 4.5 (1.3-7.7) k/uL Lymphocytes # 2.6 (1.0-4.8) k/uL Monocytes # 0.6 (0-1.0) k/uL Eosinophils # 0.9 H (0-0.7) k/uL Basophils # 0.2 (0-0.2) k/uL Sodium 139 (137-145) mmol/L Potassium 4.5 (3.5-5.1) mmol/L Chloride 104 (98-107) mmol/L Carbon Dioxide 26 (22-30) mmol/L Anion Gap 9 mmol/L BUN 17 (7-17) mg/dL Creatinine 0.91 (0.52-1.04) mg/dL Est GFR (CKD-EPI)AfAm 73 (>60 ml/min/1.73 sqM) Est GFR (CKD-EPI)NonAf 64 (>60 ml/min/1.73 sqM) Glucose 96 (74-99) mg/dL Plasma Lactic Acid Paulino 0.9 (0.7-2.0) mmol/L Calcium 9.3 (8.4-10.2) mg/dL Magnesium 2.2 (1.6-2.3) mg/dL Total Bilirubin 0.6 (0.2-1.3) mg/dL AST 29 (14-36) U/L ALT 17 (4-34) U/L Alkaline Phosphatase 107 (38-126) U/L Troponin I (0.000-0.034) ng/mL Total Protein 7.0 (6.3-8.2) g/dL Albumin 3.9 (3.5-5.0) g/dL Lipase 50 (23-300) U/L Urine Color Urine Appearance (Clear) Urine pH (5.0-8.0) Ur Specific [place] (1.001-1.035) Urine Protein (Negative) Urine Glucose (UA) (Negative) Urine Ketones (Negative) Urine Blood (Negative) Urine Nitrite (Negative) Urine Bilirubin (Negative) Urine Urobilinogen (<2.0) mg/dL Ur Leukocyte Esterase (Negative) Urine RBC (0-5) /hpf Urine WBC (0-5) /hpf Ur Squamous Epith Cells (0-4) /hpf Urine Mucus (None) /hpf 12/16/19 12/16/19 Range/Units 15:20 15:20 WBC (3.8-10.6) k/uL RBC (3.80-5.40) m/uL Hgb (11.4-16.0) gm/dL Hct (34.0-46.0) % MCV (80.0-100.0) fL MCH (25.0-35.0) pg MCHC (31.0-37.0) g/dL RDW (11.5-15.5) % Plt Count (150-450) k/uL Neutrophils % % Lymphocytes % % Monocytes % % Eosinophils % % Basophils % % Neutrophils # (1.3-7.7) k/uL Lymphocytes # (1.0-4.8) k/uL Monocytes # (0-1.0) k/uL Eosinophils # (0-0.7) k/uL Basophils # (0-0.2) k/uL Sodium (137-145) mmol/L Potassium (3.5-5.1) mmol/L Chloride (98-107) mmol/L Carbon Dioxide (22-30) mmol/L Anion Gap mmol/L BUN (7-17) mg/dL Creatinine (0.52-1.04) mg/dL Est GFR (CKD-EPI)AfAm (>60 ml/min/1.73 sqM) Est GFR (CKD-EPI)NonAf (>60 ml/min/1.73 sqM) Glucose (74-99) mg/dL Plasma Lactic Acid Paulino (0.7-2.0) mmol/L Calcium (8.4-10.2) mg/dL Magnesium (1.6-2.3) mg/dL Total Bilirubin (0.2-1.3) mg/dL AST (14-36) U/L ALT (4-34) U/L Alkaline Phosphatase (38-126) U/L Troponin I <0.012 (0.000-0.034) ng/mL Total Protein (6.3-8.2) g/dL Albumin (3.5-5.0) g/dL Lipase (23-300) U/L Urine Color Yellow Urine Appearance Clear (Clear) Urine pH 6.0 (5.0-8.0) Ur Specific [place] 1.020 (1.001-1.035) Urine Protein Negative (Negative) Urine Glucose (UA) Negative (Negative) Urine Ketones Negative (Negative) Urine Blood Small H (Negative) Urine Nitrite Negative (Negative) Urine Bilirubin Negative (Negative) Urine Urobilinogen <2.0 (<2.0) mg/dL Ur Leukocyte Esterase Negative (Negative) Urine RBC 4 (0-5) /hpf Urine WBC 1 (0-5) /hpf Ur Squamous Epith Cells 2 (0-4) /hpf Urine Mucus Rare H (None) /hpf Disposition Clinical Impression: Iliac artery dissection, Chest pain Disposition: ADMITTED IP TO THIS HOSP Condition: Serious Is patient prescribed a controlled substance at d/c from ED?: No Referrals: Mark Han MD [Primary Care Provider] - 1-2 days
[2019-12-16 15:33] LABS: Basophils # (A) 0.2 k/uL (0-0.2); Basophils % (A) 3 %; Eosinophils # (A) 0.9 k/uL (0-0.7); Eosinophils % (A) 10 %; HCT 40.5 % (34.0-46.0); Lymphocytes # (A) 2.6 k/uL (1.0-4.8); Lymphocytes % (A) 28 %; MCH 29.7 pg (25.0-35.0); MCHC 32.1 g/dL (31.0-37.0); MCV 92.5 fL (80.0-100.0); Mean Platelet Volume 8.3; Monocytes # (A) 0.6 k/uL (0-1.0); Monocytes % (A) 7 %; Neutrophils # (A) 4.5 k/uL (1.3-7.7); Neutrophils % (A) 49 %; Platelet Count 246 k/uL (150-450); RBC 4.38 m/uL (3.80-5.40); RDW 13.3 % (11.5-15.5); WBC 9.2 k/uL (3.8-10.6)
[2019-12-16] MEDS ORDERED: CYCLOBENZAPRINE 5 MG TAB PO STA (15:34)
[2019-12-16 15:50] LABS: Appearance,Urine Clear (Clear); Bilirubin,Urine Negative (Negative); Blood,Urine Small (Negative); Color,Urine Yellow; Glucose,Urine (UA) Negative (Negative); Ketones,Urine Negative (Negative); Leukocyte Esterase,Urine Negative (Negative); Mucus,Urine Rare /hpf; Nitrite,Urine Negative (Negative); Protein,Urine Negative (Negative); RBC,Urine 4 /hpf (0-5); Squamous Epithelial Cell,Urine 2 /hpf (0-4); Urobilinogen,Urine <2.0 mg/dL (<2.0); WBC,Urine 1 /hpf (0-5)
[2019-12-16 15:55] LABS: Albumin 3.9 g/dL (3.5-5.0); Calcium 9.3 mg/dL (8.4-10.2); Magnesium 2.2 mg/dL (1.6-2.3); Potassium 4.5 mmol/L (3.5-5.1); Total Bilirubin 0.6 mg/dL (0.2-1.3)
--- NOTE | 2019-12-16 16:50 | CT ---
EXAMINATION TYPE: CT angio thor/abd pel aorta DATE OF EXAM: 12/16/2019 COMPARISON: none HISTORY: Back pain with spasms and urination changes. CT DLP: 1264.5 mGycm CONTRAST: CTA thoracic and abdominal aorta with 3-D reconstruction is performed and with IV Contrast, patient i njected with 100 mL of Isovue 370. Contrast CTA of the thoracic and abdominal aorta was performed from the lung apex through the base of the pelvis. 3-D reconstruction imaging obtained at a separate workstation. CT Chest: THORACIC AORTA: There is no evidence for aneurysm. No dissection or mediastinal hematoma. Mild ath eromatous changes are seen. LUNGS: The lungs are clear and free of infiltrate or atelectasis. No pulmonary nodule or mass is det ected. No pleural effusion or CT evidence of interstitial lung disease. MEDIASTINUM: The heart is not enlarged. No evidence for mediastinal mass or adenopathy. HILAR STRUCTURES: No evidence for mass. No hilar adenopathy is appreciated. OTHER: No significant abnormality. CONTRAST CT ABDOMEN AND PELVIS ABDOMINAL AORTA: No evidence for abdominal aortic aneurysm. No dissection. Iliac vessels are symmet katy and patent. Small focal dissection right common iliac artery which is mildly aneurysmal at 2.1 cm. LIVER/GB- No significant abnormality is seen. PANCREAS- No significant abnormality is seen. SPLEEN- No significant abnormality is seen. ADRENALS- No significant abnormality is seen. KIDNEYS/BLADDER- No significant abnormality is seen. BOWEL- No Significant abnormality GENITAL ORGANS: No gross abnormality seen. LYMPH NODES- No greater than 1cm abdominal or pelvic lymph nodes are appreciated. OSSEOUS STRUCTURES- No significant abnormality is seen. OTHER- No significant abnormality is seen. IMPRESSION- 1. No evidence for thoracoabdominal aortic aneurysm. Scattered atheromatous change noted. Mild aneury smal dilatation right common iliac artery with small focal dissection.
[2019-12-16] MEDS ORDERED: ASPIRIN 325 MG TAB PO STA (17:11)
[2019-12-16] MEDS ORDERED: NALOXONE 0.4 MG/ML 1 ML VIAL IV PRN (17:47)
[2019-12-16] MEDS ORDERED: MORPHINE SULFATE 4 MG/ML SYRINGE IV PRN (17:49)
[2019-12-16] MEDS ORDERED: NITROGLYCERIN SL TABS 0.4 MG TAB SUBLINGUAL PRN (17:49)
[2019-12-16] MEDS: SODIUM CHLORIDE 0.9% 1,000 ML IV SCH (22:43)
[2019-12-17 04:11] LABS: Cholesterol 175 mg/dL (<200); HDL Cholesterol 33 mg/dL (40-60); LDL Cholesterol,Calculated 116 mg/dL (0-99); Triglycerides 131 mg/dL (<150)
[2019-12-17] MEDS: SODIUM CHLORIDE 0.9% 1,000 ML IV SCH (08:40)
[2019-12-17 08:43] VITALS: TEMP 98
[2019-12-17] MEDS ORDERED: ASPIRIN 325 MG TAB PO SCH (09:00)
--- NOTE | 2019-12-17 10:36 | P.CRDCN ---
History of Present Illness Consult date: 12/17/19 History of present illness: This is 69-year-old female with history of mild coronary artery disease documented by cardiac catheterization in 2018, previous colostomy with reversal and also possible 4 cm aortic aneurysm, who came to the emergency room mainly with complaints of spasms of the back. Patient had the spasms in the past and used to be treated with steroid with relief. This time patient didn't want to take steroids and has tried taking anti-inflammatory agents and local cold compresses without much relief. Patient came to the emergency room mainly with this complaint. She also complained of mild shortness of breath and very mild chest discomfort. Patient had evaluation with computed tomography scan of the thoracoabdominal area. She was found a small dissection of the right iliac artery. She is admitted here for further evaluation of this. Patient now doesn't complain of any chest pain. She claims that she had a stress test and echo [place] by Dr. Koenig. We will try to get copies with him. Her main focus at this time is getting relief of back spasms. Her EKG did not reveal any acute changes and cardiac enzymes are negative. I feel that the dissection. The right iliac could be chronic and most causing any symptoms at this time and probably doesn't need any acute intervention. Surgical consult is pending. From Cardec standpoint, I'm not that depending any further workup at this time. Once patient gets relief from her back spasms, patient could be discharged home to be followed by Dr. 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 diverticulitis History of Any Multi-Drug Resistant Organisms: None Reported Past Surgical History: Appendectomy, Bladder Surgery, Bowel Resection, Cholecystectomy, Hernia Repair, Hysterectomy Additional Past Surgical History / Comment(s): Colostomy and reversal; Colonoscopy, Cataract removal Past Anesthesia/Blood Transfusion Reactions: No Reported Reaction Past Psychological History: No Psychological Hx Reported Smoking Status: Former smoker Past Alcohol Use History: None Reported Additional Past Alcohol Use History / Comment(s): has smoked 1/2 ppd for about 45 years Past Drug Use History: None Reported - Past Family History Mother Family Medical History: No Reported History Medications and Allergies Home Medications Medication Instructions Recorded Confirmed Type oxyCODONE-APAP 10-325MG [Percocet 0.5 tab PO HS 04/29/19 12/16/19 History 10-325 mg] Nitrofurantoin Monohyd/M-Cryst 100 mg PO BID 12/16/19 12/16/19 History [Macrobid] Pantoprazole [Protonix] 40 mg PO DAILY 12/16/19 12/16/19 History Allergies Allergy/AdvReac Type Severity Reaction Status Date / Time adhesive tape Allergy Severe TURNS SKIN Verified 12/16/19 20:12 BLACK AND BLUE WITH RASH AROUND AREA lactose Allergy Nausea & Verified 12/16/19 20:12 Vomiting & Diarrhea tetracycline AdvReac Mild Nausea & Verified 12/16/19 20:12 Vomiting codeine AdvReac Nausea & Verified 12/16/19 20:12 Vomiting metronidazole [From Flagyl] AdvReac nausea Verified 12/16/19 20:12 vomiting diarrhea simvastatin AdvReac Nausea & Verified 12/16/19 20:12 Vomiting & Diarrhea Physical Exam Vitals: Vital Signs Temp Pulse Pulse Resp BP BP Pulse Ox 12/17/19 08:00 98.0 F 71 14 104/56 95 12/17/19 03:05 97.8 F 71 16 95/55 100 12/16/19 23:14 97.5 F L 71 16 113/57 95 12/16/19 22:45 68 18 112/57 99 12/16/19 22:00 67 20 100/53 98 12/16/19 21:00 68 15 117/63 98 12/16/19 20:00 73 17 106/57 97 12/16/19 19:00 19 101/61 100 12/16/19 18:00 68 28 H 115/63 99 12/16/19 17:00 72 19 89/56 100 12/16/19 16:00 67 13 97/60 99 12/16/19 15:34 99 12/16/19 13:43 98.7 F 82 16 112/72 96 Intake and Output 12/16/19 12/17/19 12/17/19 22:59 06:59 14:59 Other: Voiding Method Toilet Toilet # Voids 1 Weight 78.6 kg GENERAL EXAM: Patient is alert and oriented and doesn't appear to be in any acute distress HEENT: Normocephalic. Normal reaction of pupils, equal size, normal range of extraocular motion. No erythema or exudates in the throat. NECK: No masses, no nuchal rigidity. CHEST: No chest wall deformity. LUNGS: Equal air entry with no crackles or wheeze. HEART: S1 and S2 normal with no audible mumurs or gallops. Regular rhythm, femorals equal on both sides.. ABDOMEN: No hepatosplenomegaly, normal bowel sounds, no guarding or rigidity. SKIN: No rashes CENTRAL NERVOUS SYSTEM: No focal deficits. EXTREMITIES: No cyanosis, clubbing or edema. Results 12/16/19 15:20 12/16/19 15:20 Cardiac Enzymes 12/16/19 12/16/19 12/16/19 Range/Units 15:20 15:20 21:14 AST 29 (14-36) U/L Troponin I <0.012 <0.012 (0.000-0.034) ng/mL 12/17/19 Range/Units 03:21 AST (14-36) U/L Troponin I <0.012 (0.000-0.034) ng/mL Lipids 12/17/19 Range/Units 03:21 Triglycerides 131 (<150) mg/dL Cholesterol 175 (<200) mg/dL HDL Cholesterol 33 L (40-60) mg/dL CBC 12/16/19 Range/Units 15:20 WBC 9.2 (3.8-10.6) k/uL RBC 4.38 (3.80-5.40) m/uL Hgb 13.0 (11.4-16.0) gm/dL Hct 40.5 (34.0-46.0) % Plt Count 246 (150-450) k/uL Comprehensive Metabolic Panel 12/16/19 Range/Units 15:20 Sodium 139 (137-145) mmol/L Potassium 4.5 (3.5-5.1) mmol/L Chloride 104 (98-107) mmol/L Carbon Dioxide 26 (22-30) mmol/L BUN 17 (7-17) mg/dL Creatinine 0.91 (0.52-1.04) mg/dL Glucose 96 (74-99) mg/dL Calcium 9.3 (8.4-10.2) mg/dL AST 29 (14-36) U/L ALT 17 (4-34) U/L Alkaline Phosphatase 107 (38-126) U/L Total Protein 7.0 (6.3-8.2) g/dL Albumin 3.9 (3.5-5.0) g/dL Current Medications Generic Name Dose Route Start Last Admin Trade Name Freq PRN Reason Stop Dose Admin Aspirin 325 mg 12/17/19 09:00 12/17/19 08:40 Aspirin PO 325 mg DAILY KRISTA Administration Sodium Chloride 1,000 mls @ 75 mls/hr 12/16/19 18:00 12/17/19 08:40 Saline 0.9% IV Not Given .[id number] KRISTA Morphine Sulfate 4 mg 12/16/19 17:49 Morphine Sulfate (Inj) IV Q4HR PRN Chest Pain Naloxone HCl 0.2 mg 12/16/19 17:47 Narcan IV Q2M PRN Opioid Reversal Nitroglycerin 0.4 mg 12/16/19 17:49 Nitrostat SUBLINGUAL Q5M PRN Chest Pain Intake and Output 12/16/19 12/17/19 12/17/19 22:59 06:59 14:59 Other: Voiding Method Toilet Toilet # Voids 1 Weight 78.6 kg 12/16/19 15:20 12/16/19 15:20 EKG Interpretations (text) Sinus rhythm Assessment and Plan (1) Back pain Current Visit: Yes Status: Acute Code(s): M54.9 - DORSALGIA, UNSPECIFIED SNOMED Code(s): 848411419 (2) Chest pain Current Visit: Yes Status: Acute Code(s): R07.9 - CHEST PAIN, UNSPECIFIED SNOMED Code(s): 37485541 (3) Iliac artery dissection Current Visit: Yes Status: Acute Code(s): I77.72 - DISSECTION OF ILIAC ARTERY SNOMED Code(s): 504487098 Plan: Her main complaint seemed to be back spasm. She is not having active chest pain at this time and her cardiac enzymes and EKGs are normal. Had a cardiac catheterization 2017 showing only mild disease. The dissection in the right iliac could be chronic. Vascular consult is pending. No cardiac workup at this time. If cleared by vascular surgery and she gets relief from her back spasms, patient could be discharged home. Follow-up with the Dr. Koenig as an outpatie nt
--- NOTE | 2019-12-17 11:54 | P.GSCN ---
History of Present Illness Consult date: 12/17/19 History of present illness: The patient is a 69-year-old female with restless legs, varicose veins, arthritis, diverticulitis, mild coronary artery disease who presented to the hospital yesterday with back pain and spasms. She's had this in the past and came in because this was not improving with her typical home therapies. When in the ER she was given morphine and with that had some discomfort in her chest. 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 She denies any pain in her legs at this point. She denies any fevers, chills, nausea or vomiting. 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 diverticulitis History of Any Multi-Drug Resistant Organisms: None Reported Past Surgical History: Appendectomy, Bladder Surgery, Bowel Resection, Chol ecystectomy, Hernia Repair, Hysterectomy Additional Past Surgical History / Comment(s): Colostomy and reversal; Colonoscopy, Cataract removal Past Anesthesia/Blood Transfusion Reactions: No Reported Reaction Past Psychological History: No Psychological Hx Reported Smoking Status: Former smoker Past Alcohol Use History: None Reported Additional Past Alcohol Use History / Comment(s): has smoked 1/2 ppd for about 45 years Past Drug Use History: None Reported - Past Family History Mother Family Medical History: No Reported History Medications and Allergies Home Medications Medication Instructions Recorded Confirmed Type oxyCODONE-APAP 10-325MG [Percocet 0.5 tab PO HS 04/29/19 12/16/19 History 10-325 mg] Nitrofurantoin Monohyd/M-Cryst 100 mg PO BID 12/16/19 12/16/19 History [Macrobid] Pantoprazole [Protonix] 40 mg PO DAILY 12/16/19 12/16/19 History Allergies Allergy/AdvReac Type Severity Reaction Status Date / Time adhesive tape Allergy Severe TURNS SKIN Verified 12/16/19 20:12 BLACK AND BLUE WITH RASH AROUND AREA lactose Allergy Nausea & Verified 12/16/19 20:12 Vomiting & Diarrhea tetracycline AdvReac Mild Nausea & Verified 02/13/20 20:12 Vomiting codeine AdvReac Nausea & Verified 12/16/19 20:12 Vomiting metronidazole [From Flagyl] AdvReac nausea Verified 12/16/19 20:12 vomiting diarrhea simvastatin AdvReac Nausea & Verified 12/16/19 20:12 Vomiting & Diarrhea Surgical - Exam Vital Signs Temp Pulse Resp BP Pulse Ox 98.7 F 82 16 112/72 96 12/16/19 13:43 12/16/19 13:43 12/16/19 13:43 12/16/19 13:43 12/16/19 13:43 Gen. is a pleasant cooperative female in no acute distress. HEENT is normal cephalic, atraumatic, excellent motion intact. Wearing glasses. Heart is regular at this time. Lungs are clear bilaterally. Abdomen is soft, nontender nondistended. Obese. She has trouble radial, femoral and dorsalis pedis pulses bilaterally. Normal mood and affect. Cranial nerves II-[address] angiogram is reviewed. There dissection is noted. Does not appear to be flow-limiting - Labs 12/16/19 15:20 12/16/19 15:20 Abnormal Lab Results - Last 24 Hours (Table) 12/16/19 12/16/19 12/17/19 Range/Units 15:20 15:20 03:21 Eosinophils # 0.9 H (0-0.7) k/uL LDL Cholesterol, Calc 116 H (0-99) mg/dL HDL Cholesterol 33 L (40-60) mg/dL Urine Blood Small H (Negative) Urine Mucus Rare H (None) /hpf Diabetes panel 12/16/19 12/17/19 Range/Units 15:20 03:21 Sodium 139 (137-145) mmol/L Potassium 4.5 (3.5-5.1) mmol/L Chloride 104 (98-107) mmol/L Carbon Dioxide 26 (22-30) mmol/L BUN 17 (7-17) mg/dL Creatinine 0.91 (0.52-1.04) mg/dL Glucose 96 (74-99) mg/dL Calcium 9.3 (8.4-10.2) mg/dL AST 29 (14-36) U/L ALT 17 (4-34) U/L Alkaline Phosphatase 107 (38-126) U/L Total Protein 7.0 (6.3-8.2) g/dL Albumin 3.9 (3.5-5.0) g/dL Triglycerides 131 (<150) mg/dL HDL Cholesterol 33 L (40-60) mg/dL Calcium panel 12/16/19 Range/Units 15:20 Calcium 9.3 (8.4-10.2) mg/dL Albumin 3.9 (3.5-5.0) g/dL Pituitary panel 12/16/19 Range/Units 15:20 Sodium 139 (137-145) mmol/L Potassium 4.5 (3.5-5.1) mmol/L Chloride 104 (98-107) mmol/L Carbon Dioxide 26 (22-30) mmol/L BUN 17 (7-17) mg/dL Creatinine 0.91 (0.52-1.04) mg/dL Glucose 96 (74-99) mg/dL Calcium 9.3 (8.4-10.2) mg/dL Adrenal panel 12/16/19 Range/Units 15:20 Sodium 139 (137-145) mmol/L Potassium 4.5 (3.5-5.1) mmol/L Chloride 104 (98-107) mmol/L Carbon Dioxide 26 (22-30) mmol/L BUN 17 (7-17) mg/dL Creatinine 0.91 (0.52-1.04) mg/dL Glucose 96 (74-99) mg/dL Calcium 9.3 (8.4-10.2) mg/dL Total Bilirubin 0.6 (0.2-1.3) mg/dL AST 29 (14-36) U/L ALT 17 (4-34) U/L Alkaline Phosphatase 107 (38-126) U/L Total Protein 7.0 (6.3-8.2) g/dL Albumin 3.9 (3.5-5.0) g/dL Assessment and Plan Assessment: #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 Do not believe there is any intervention warranted given there is no evidence of flow limitation. I do not believe this is related to her problems at this present time. It is likely that this has been something that has been there for a while, possibly consequence of a previous catheterization. We will follow-up with her as an outpatient for surveillance if any further aneurysmal dilatation occurs and intervention be necessary. She can be discharged from a vascular surgical standpoint
[2019-12-17 12:15] VITALS: BP 110/63; PULSE 77; RESP 16
--- NOTE | 2019-12-17 21:33 | P.HPIM ---
History of Present Illness H&P Date: 12/17/19 Chief Complaint: Back spasms Patient is 69-year-old female with a known history of osteoarthritis, varicose veins, arthritis, 4 cm aortic aneurysm history, diverticulitis status post colostomy and reversal and former history of smoking came to ER with complaints of back spasms. Patient does have a history of back spasms and was treated with steroids injections without much relief. Patient did not want to take steroids and has tried taking anti-inflammatory agents and cold compresses without much relief. Came to ER for evaluation. Patient states that approximately 5 days ago she began to experience lumbar and thoracic back pain without injury. Sometimes it is goes down her left leg. Denies any paresthesias. No bladder or bowel control. Patient also having substernal chest discomfort for the past 2 days on and off. Mild shortness of breath. Otherwise denied any cough or sputum production. No fever no chills. No dysuria or hematuria. No headache or dizziness or lightheadedness. In the ER patient had CT angiogram of the thoracic and abdominal aorta showed no evidence of aneurysm. Scattered erythematous changes noted. Mildly aneurysmal dilation right common iliac artery with small focal dissection. EKG showed no acute changes. Normal sinus rhythm. Troponin 2 negative. Patient does have history of cardiac catheterization in 2018 showed mild disease. Review of Systems Constitutional: Patient denies any fever or chills . No generalized weakness or weight loss. Abdomen: Patient denied nausea vomiting and diarrhea and abdominal pain. Cardiovascular: Patient denies any chest pain or short of breath no palpitations. Respiratory: patient denied any cough is from production. No shortness of b reath Neurologic: Patient denied any numbness or tingling headache. Musculoskeletal: Patient denies any complaints of joint swelling or deformity. Skin: Negative Psychiatric: Negative Endocrine: No heat or cold intolerance. No recent weight gain. Genitourinary: No dysuria or hematuria. 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 diverticulitis History of Any Multi-Drug Resistant Organisms: None Reported Past Surgical History: Appendectomy, Bladder Surgery, Bowel Resection, Cholecystectomy, Hernia Repair, Hysterectomy Additional Past Surgical History / Comment(s): Colostomy and reversal; Colonoscopy, Cataract removal Past Anesthesia/Blood Transfusion Reactions: No Reported Reaction Past Psychological History: No Psychological Hx Reported Smoking Status: Former smoker Past Alcohol Use History: None Reported Additional Past Alcohol Use History / Comment(s): has smoked 1/2 ppd for about 45 years Past Drug Use History: None Reported - Past Family History Mother Family Medical History: No Reported History Medications and Allergies Home Medications Medication Instructions Recorded Confirmed Type oxyCODONE-APAP 10-325MG [Percocet 0.5 tab PO HS 04/29/19 12/16/19 History 10-325 mg] Nitrofurantoin Monohyd/M-Cryst 100 mg PO BID 12/16/19 12/16/19 History [Macrobid] Pantoprazole [Protonix] 40 mg PO DAILY 12/16/19 12/16/19 History Allergies Allergy/AdvReac Type Severity Reaction Status Date / Time adhesive tape Allergy Severe TURNS SKIN Verified 12/16/19 20:12 BLACK AND BLUE WITH RASH AROUND AREA lactose Allergy Nausea & Verified 12/16/19 20:12 Vomiting & Diarrhea tetracycline AdvReac Mild Nausea & Verified 12/16/19 20:12 Vomiting codeine AdvReac Nausea & Verified 12/16/19 20:12 Vomiting metronidazole [From Flagyl] AdvReac nausea Verified 12/16/19 20:12 vomiting diarrhea simvastatin AdvReac Nausea & Verified 12/16/19 20:12 Vomiting & Diarrhea Physical Exam Vitals: Vital Signs Temp Pulse Pulse Resp BP BP Pulse Ox 12/17/19 12:00 77 16 110/63 98 12/17/19 08:00 98.0 F 71 14 104/56 95 12/17/19 03:05 97.8 F 71 16 95/55 100 12/16/19 23:14 97.5 F L 71 16 113/57 95 12/16/19 22:45 68 18 112/57 99 12/16/19 22:00 67 20 100/53 98 12/16/19 21:00 68 15 117/63 98 12/16/19 20:00 73 17 106/57 97 12/16/19 19:00 19 101/61 100 12/16/19 18:00 68 28 H 115/63 99 12/16/19 17:00 72 19 89/56 100 12/16/19 16:00 67 13 97/60 99 12/16/19 15:34 99 12/16/19 13:43 98.7 F 82 16 112/72 96 Intake and Output 12/16/19 12/17/19 12/17/19 22:59 06:59 14:59 Other: Voiding Method Toilet Toilet # Voids 1 Weight 78.6 kg PHYSICAL EXAMINATION: Patient is lying in the bed comfortably, no acute distress, awake alert and oriented.. HEENT: Normocephalic. Neck is supple. Pupils reactive. Nostrils clear. Oral cavity is moist. Ears reveal no drainage. Neck reveals no JVD, carotid bruits, or thyromegaly. CHEST EXAMINATION: Trachea is central. Symmetrical expansion. Lung christianson clear to auscultation and percussion. CARDIAC: Normal S1, S2 with no gallops. No murmurs ABDOMEN: Soft. Bowel sounds normal. No organomegaly. No abdominal bruits. Extremities: reveal no edema. No clubbing or cyanosis Neurologically awake, alert, oriented x3 with well-coordinated movements. No focal deficits noted Skin: No rash or skin lesions. Psychiatric: Coperative. Nonsuicidal Musculoskeletal: No joint swelling or deformity. Normal range of motion. Results CBC & Chem 7: 12/16/19 15:20 12/16/19 15:20 Labs: Abnormal Lab Results - Last 24 Hours (Table) 12/16/19 12/16/19 12/17/19 Range/Units 15:20 15:20 03:21 Eosinophils # 0.9 H (0-0.7) k/uL LDL Cholesterol, Calc 116 H (0-99) mg/dL HDL Cholesterol 33 L (40-60) mg/dL Urine Blood Small H (Negative) Urine Mucus Rare H (None) /hpf Thrombosis Risk Factor Assmnt - DVT/VTE Prophylaxis DVT/VTE Prophylaxis: Pharmacologic Prophylaxis ordered - Choose All That Apply Any of the Below Risk Factors Present?: Yes Each Factor Represents 1 point: Obesity (BMI >25), Swollen legs (current), Varicose veins Each Risk Factor Represents 2 Points: Age 61-74 years Other congenital or acquired thrombophilia - If yes, enter type in comment: No Thrombosis Risk Factor Assessment Total Risk Factor Score: 5 Thrombosis Risk Factor Assessment Level: High Risk Assessment and Plan Assessment: Back spasms improved with pain medications Right iliac aneurysmal dilation with focal area of dissection. No intervention as per vascular surgery at this time. Chest pain. Ruled out ACS. Cardiac catheterization 2017 showed mild disease. Restless leg syndrome History of diverticulitis, colostomy and reversal. Varicose veins Osteoarthritis DVT prophylaxis Plan: Patient was continued on telemetry monitoring. Serial EKG and troponins 3 negative. Patient was seen by cardiology and vascular surgery. No intervention was recommended. Patient will be discharged home and follow-up as an outpatient with her PCP and vascular surgery. Time with Patient: Greater than 30
--- NOTE | 2019-12-17 21:34 | P.DS ---
Providers Date of admission: 12/16/19 17:24 Expected date of discharge: 12/17/19 Attending physician: Marcellus Khan Consults: 12/16/19 17:47 Consult Physician Stat Consulting Provider: Fredrick Mckeon Consult Reason/Comments: right common iliac artery dissection, chest pain Do you want consulting provider notified?: Yes Consult Physician Stat Consulting Provider: Marci Granados Consult Reason/Comments: right common iliac artery dissection, chest pain Do you want consulting provider notified?: Yes Primary care physician: [facility] Course: Discharge diagnosis Back spasms improved with pain medications Right iliac aneurysmal dilation with focal area of dissection. No intervention as per vascular surgery at this time. Chest pain. Ruled out ACS. Cardiac catheterization 2018 showed mild disease. Restless leg syndrome History of diverticulitis, colostomy and reversal. Varicose veins Osteoarthritis DVT prophylaxis Hospital course. Patient is 69-year-old female with a known history of osteoarthritis, varicose veins, arthritis, 4 cm aortic aneurysm history, diverticulitis status post colostomy and reversal and former history of smoking came to ER with complaints of back spasms. Patient does have a history of back spasms and was treated with steroids injections without much relief. Patient did not want to take steroids and has tried taking anti-inflammatory agents and cold compresses without much relief. Came to ER for evaluation. Patient states that approximately 5 days ago she began to experience lumbar and thoracic back pain without injury. Sometimes it is goes down her left leg. Denies any paresthesias. No bladder or bowel control. Patient also having substernal chest discomfort for the past 2 days on and off. Mild shortness of breath. Otherwise denied any cough or sputum production. No fever no chills. No dysuria or hematuria. No headache or dizziness or lightheadedness. In the ER patient had CT angiogram of the thoracic and abdominal aorta showed no evidence of aneurysm. Scattered erythematous changes noted. Mildly aneurysmal dilation right common iliac artery with small focal dissection. EKG showed no acute changes. Normal sinus rhythm. Troponin 3 negative. Patient does have history of cardiac catheterization in 2018 showed mild disease. Patient was continued on telemetry monitoring. Serial EKG and troponins 3 negative. Patient was seen by cardiology and vascular surgery. No intervention was recommended. Patient will be discharged home and follow-up as an outpatient with her PCP and vascular surgery. Discharge physical examination was done and vitals reviewed. Patient Condition at Discharge: Stable Plan - Discharge Summary Discharge Rx Participant: No New Discharge Prescriptions: Continue oxyCODONE-APAP 10-325MG [Percocet 10-325 mg] 0.5 tab PO HS Pantoprazole [Protonix] 40 mg PO DAILY Nitrofurantoin Monohyd/M-Cryst [Macrobid] 100 mg PO BID Discharge Medication List oxyCODONE-APAP 10-325MG [Percocet 10-325 mg] 0.5 tab PO HS 04/29/19 [History] Nitrofurantoin Monohyd/M-Cryst [Macrobid] 100 mg PO BID 12/16/19 [History] Pantoprazole [Protonix] 40 mg PO DAILY 12/16/19 [History] Follow up Appointment(s)/Referral(s): Desire Koenig MD [STAFF PHYSICIAN] - 1 Week Fredrick Mckeon DO [STAFF PHYSICIAN] - As Needed (Follow up with Dr. Bates regarding iliac dissection.) Mark Han MD [Primary Care Provider] - 1-2 days Patient Instructions/Handouts: Muscle Spasm (ED) Discharge Disposition: HOME SELF-CARE
--- NOTE | 2019-12-18 08:13 | ECHOF ---
Referral Reason:chest pain MEASUREMENTS -------- HEIGHT: 160.0 cm WEIGHT: 78.5 kg BP: RVIDd: 2.5 cm (< 3.3) IVSd: 1.6 cm (0.6 - 1.1) LVIDd: 3.8 cm (3.9 - 5.3) LVPWd: 1.5 cm (0.6 - 1.1) IVSs: 1.9 cm LVIDs: 2.2 cm LVPWs: 2.1 cm LAESV Index (A-L): 18.88 ml/m Ao Diam: 3.6 cm (2.0 - 3.7) AV Cusp: 1.9 cm (1.5 - 2.6) LA Diam: 2.5 cm (2.7 - 3.8) MV EXCURSION: 11.453 mm (> 18.000) MV EF SLOPE: 50 mm/s (70 - 150) EPSS: 1.1 cm MV E Gume: 0.68 m/s MV DecT: 197 ms MV A Gume: 0.75 m/s MV E/A Ratio: 0.91 RAP: 5.00 mmHg RVSP: 29.84 mmHg FINDINGS -------- Sinus rhythm. This was a technically good study. The left ventricular size is normal. There is moderate concentric left ventricular hypertrophy. O verall left ventricular systolic function is normal with, an EF between 55 - 60 %. The diastolic fi lling pattern is normal for the age of the patient 10.66. The right ventricle is normal in size. The left atrial size is normal. Normal LA size by volume 22+/-6 ml/m2. The right atrial size is normal. Aortic valve is trileaflet and is mildly thickened. The mitral valve is normal. The mitral valve leaflets are mildly thickened. There is trace mitral regurgitation. The tricuspid valve appears structurally normal. Trace tricuspid regurgitation present. Right mana tricular systolic pressure is normal at < 35 mmHg. There is no pulmonic regurgitation present. The aortic root size is normal. Normal inferior vena cava with normal inspiratory collapse consistent with estimated right atrial pre ssure of 5 mmHg. There is no pericardial effusion. CONCLUSIONS -------- 1. Sinus rhythm. 2. This was a technically good study. 3. The left ventricular size is normal. 4. There is moderate concentric left ventricular hypertrophy. 5. Overall left ventricular systolic function is normal with, an EF between 55 - 60 %. 6. The diastolic filling pattern is normal for the age of the patient 10.66 7. The right ventricle is normal in size. 8. The left atrial size is normal. 9. Normal LA size by volume 22+/-6 ml/m2. 10. The right atrial size is normal. 11. Aortic valve is trileaflet and is mildly thickened. 12. The mitral valve is normal. 13. The mitral valve leaflets are mildly thickened. 14. There is trace mitral regurgitation. 15. The tricuspid valve appears structurally normal. 16. Trace tricuspid regurgitation present. 17. Right ventricular systolic pressure is normal at < 35 mmHg. 18. There is no pulmonic regurgitation present. 19. The aortic root size is normal. 20. Normal inferior vena cava with normal inspiratory collapse consistent with estimated right atrial pressure of 5 mmHg. 21. There is no pericardial effusion. [employer] ASSEMBLER: Kathrine Carpenter RDCS
== END 2019-12-17 13:21 | disposition home or self-care (01) | DRG 300 ==
LOC: EC 13:21 → 3SCARD 17:24
PROVIDERS: ADMIT Hospitalist; ATTEND Hospitalist
DX: I77.72 Dissection of iliac artery (principal); K57.92 Diverticulitis of intestine, part unspecified, without perforation or abscess without bleeding; N39.0 Urinary tract infection, site not specified; I83.90 Asymptomatic varicose veins of unspecified lower extremity; F17.210 Nicotine dependence, cigarettes, uncomplicated; G25.81 Restless legs syndrome; I25.10 Atherosclerotic heart disease of native coronary artery without angina pectoris; M19.90 Unspecified osteoarthritis, unspecified site; Z79.899 Other long term (current) drug therapy; Z90.710 Acquired absence of both cervix and uterus; Z90.49 Acquired absence of other specified parts of digestive tract; Z98.49 Cataract extraction status, unspecified eye; Z79.891 Long term (current) use of opiate analgesic
CPT/HCPCS: 36415; 71275; 74174; 80053; 80061; 81001; 83605; 83690; 83735; 84484; 85025; 93005; 93306

== ENCOUNTER 2020-07-11 19:46 | Emergency (ER) | payer MEDICARE, OTHER ==
[2020-07-11 19:59] VITALS: BP 108/72; TEMP 99.3
[2020-07-11] MEDS ORDERED: MORPHINE SULFATE 4 MG/ML SYRINGE IVP STA (20:26)
[2020-07-11] MEDS ORDERED: ONDANSETRON 4 MG/2 ML VIAL IVP STA (20:26)
[2020-07-11] MEDS ORDERED: SODIUM CHLORIDE 0.9% 1,000 ML IV ONE (20:26)
[2020-07-11] MEDS ORDERED: SODIUM CHLORIDE 0.9% 1,000 ML IV SCH (20:30)
--- NOTE | 2020-07-11 20:31 | ED ---
Abdominal Pain HPI - General Chief Complaint: Abdominal Pain Stated Complaint: Abd Pain Time Seen by Provider: 07/11/20 20:05 Source: patient, RN notes reviewed, old records reviewed Mode of arrival: ambulatory Limitations: no limitations - History of Present Illness Initial Comments: This patient's a 70-year-old female with multiple surgical history including colectomy and reversal, cholecystectomy, appendectomy and hernia repairs. She presents emergency room today with 2 days of left-sided abdominal pain. She reports that she was eating a lot of foods with seeds and nuts over the weekend and is worried that she may have a flareup of diverticulitis. She reports she's had small frequent bowel movements that are firm. Denies any vomiting. She reports waves of severe pain on the left side of her abdomen. She denies any recorded fevers. - Related Data Home Medications Medication Instructions Recorded Confirmed oxyCODONE-APAP 10-325MG [Percocet 0.5 tab PO HS 04/29/19 07/11/20 10-325 mg] Pantoprazole [Protonix] 40 mg PO DAILY 12/16/19 07/11/20 Previous Rx's Medication Instructions Recorded Sucralfate [Carafate] 1 gm PO ACHS #100 ml 07/11/20 Allergies Allergy/AdvReac Type Severity Reaction Status Date / Time adhesive tape Allergy Severe TURNS SKIN Verified 07/11/20 20:50 BLACK AND BLUE WITH RASH AROUND AREA lactose Allergy Nausea & Verified 07/11/20 20:50 Vomiting & Diarrhea tetracycline AdvReac Mild Nausea & Verified 07/11/20 20:50 Vomiting codeine AdvReac Nausea & Verified 07/11/20 20:50 Vomiting metronidazole [From Flagyl] AdvReac nausea Verified 07/11/20 20:50 vomiting diarrhea simvastatin AdvReac Nausea & Verified 07/11/20 20:50 Vomiting & Diarrhea Review of Systems ROS Statement: Those systems with pertinent positive or pertinent negative responses have been documented in the HPI. ROS Other: All systems not noted in ROS Statement are negative. 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 diverticulitis, History of Any Multi-Drug Resistant Organisms: None Reported Past Surgical History: Appendectomy, Bladder Surgery, Bowel Resection, Cholecystectomy, Hernia Repair, Hysterectomy Additional Past Surgical History / Comment(s): Colostomy and reversal; Colonoscopy, Cataract removal, Past Anesthesia/Blood Transfusion Reactions: No Reported Reaction Past Psychological History: No Psychological Hx Reported Smoking Status: Current every day smoker Past Alcohol Use History: None Reported Past Drug Use History: None Reported - Past Family History Mother Family Medical History: No Reported History General Exam - General Exam Comments Initial Comments: 70 year old female, alert, moderate discomfort. Limitations: no limitations General appearance: alert, in no apparent distress Head exam: Present: atraumatic, normocephalic, normal inspection Eye exam: Present: normal appearance, PERRL, EOMI. Absent: scleral icterus, conjunctival injection, periorbital swelling ENT exam: Present: normal exam, mucous membranes moist Neck exam: Present: normal inspection. Absent: tenderness, meningismus, lymphadenopathy Respiratory exam: Present: normal lung sounds bilaterally. Absent: respiratory distress, wheezes, rales, rhonchi, stridor Cardiovascular Exam: Present: regular rate, normal rhythm, normal heart sounds. Absent: systolic murmur, diastolic murmur, rubs, gallop, clicks GI/Abdominal exam: Present: soft, tenderness (left abdominal tenderness), normal bowel sounds. Absent: distended, guarding, rebound, rigid Extremities exam: Present: normal inspection, full ROM, normal capillary refill. Absent: tenderness, pedal edema, joint swelling, calf tenderness Back exam: Present: normal inspection Neurological exam: Present: alert, oriented X3, CN II-XII intact Psychiatric exam: Present: normal affect, normal mood Skin exam: Present: warm, dry, intact, normal color. Absent: rash Course Vital Signs 07/11/20 19:56 Temperature 99.3 F Pulse Rate 93 Respiratory 17 Rate Blood Pressure 108/72 O2 Sat by Pulse 97 Oximetry Medical Decision Making - Medical Decision Making 70-year-old female presents to the ER today for concerns for left-sided abdominal pain for the past 2 days. Was worried about diverticulitis. Patient is given IV fluids are obtained. Labs reviewed and unremarkable. Patient's UA shows no signs of infection. At this time Patient did have tenderness with multiple surgical history CT was completed. CT shows evidence of a left renal cyst which Patient reports she is aware of this. There is no other acute findings are patient's pain. Discussed patient's pain could likely be related to gastritis or GERD. I advised Patient to follow-up with her GI specialist. We'll start the Patient on Carafate and she will continue her Protonix. Discussed strict return parameters. - Lab Data Result diagrams: 07/11/20 20:41 07/11/20 20:41 Lab Results 07/11/20 07/11/20 07/11/20 Range/Units 20:41 20:41 20:41 WBC 10.3 (3.8-10.6) k/uL RBC 4.34 (3.80-5.40) m/uL Hgb 13.3 (11.4-16.0) gm/dL Hct 40.3 (34.0-46.0) % MCV 92.9 (80.0-100.0) fL MCH 30.6 (25.0-35.0) pg MCHC 32.9 (31.0-37.0) g/dL RDW 13.5 (11.5-15.5) % Plt Count 266 (150-450) k/uL Neutrophils % 54 % Lymphocytes % 33 % Monocytes % 8 % Eosinophils % 2 % Basophils % 1 % Neutrophils # 5.5 (1.3-7.7) k/uL Lymphocytes # 3.4 (1.0-4.8) k/uL Monocytes # 0.8 (0-1.0) k/uL Eosinophils # 0.3 (0-0.7) k/uL Basophils # 0.1 (0-0.2) k/uL PT 9.8 (9.0-12.0) sec INR 0.9 (<1.2) APTT 23.2 (22.0-30.0) sec Sodium (137-145) mmol/L Potassium (3.5-5.1) mmol/L Chloride (98-107) mmol/L Carbon Dioxide (22-30) mmol/L Anion Gap mmol/L BUN (7-17) mg/dL Creatinine (0.52-1.04) mg/dL Est GFR (CKD-EPI)AfAm (>60 ml/min/1.73 sqM) Est GFR (CKD-EPI)NonAf (>60 ml/min/1.73 sqM) Glucose (74-99) mg/dL Plasma Lactic Acid Paulino (0.7-2.0) mmol/L Calcium (8.4-10.2) mg/dL Total Bilirubin (0.2-1.3) mg/dL AST (14-36) U/L ALT (4-34) U/L Alkaline Phosphatase (38-126) U/L Total Protein (6.3-8.2) g/dL Albumin (3.5-5.0) g/dL Amylase (30-110) U/L Lipase (23-300) U/L Urine Color Yellow Urine Appearance Cloudy H (Clear) Urine pH 5.5 (5.0-8.0) Ur Specific [place] 1.011 (1.001-1.035) Urine Protein Negative (Negative) Urine Glucose (UA) Negative (Negative) Urine Ketones Negative (Negative) Urine Blood Small H (Negative) Urine Nitrite Negative (Negative) Urine Bilirubin Negative (Negative) Urine Urobilinogen <2.0 (<2.0) mg/dL Ur Leukocyte Esterase Small H (Negative) Urine RBC 1 (0-5) /hpf Urine WBC 7 H (0-5) /hpf Ur Squamous Epith Cells 18 H (0-4) /hpf Urine Bacteria Occasional H (None) /hpf Urine Mucus Occasional H (None) /hpf 07/11/20 07/11/20 Range/Units 20:41 20:41 WBC (3.8-10.6) k/uL RBC (3.80-5.40) m/uL Hgb (11.4-16.0) gm/dL Hct (34.0-46.0) % MCV (80.0-100.0) fL MCH (25.0-35.0) pg MCHC (31.0-37.0) g/dL RDW (11.5-15.5) % Plt Count (150-450) k/uL Neutrophils % % Lymphocytes % % Monocytes % % Eosinophils % % Basophils % % Neutrophils # (1.3-7.7) k/uL Lymphocytes # (1.0-4.8) k/uL Monocytes # (0-1.0) k/uL Eosinophils # (0-0.7) k/uL Basophils # (0-0.2) k/uL PT (9.0-12.0) sec INR (<1.2) APTT (22.0-30.0) sec Sodium 140 (137-145) mmol/L Potassium 4.3 (3.5-5.1) mmol/L Chloride 105 (98-107) mmol/L Carbon Dioxide 27 (22-30) mmol/L Anion Gap 8 mmol/L BUN 11 (7-17) mg/dL Creatinine 1.02 (0.52-1.04) mg/dL Est GFR (CKD-EPI)AfAm 64 (>60 ml/min/1.73 sqM) Est GFR (CKD-EPI)NonAf 55 (>60 ml/min/1.73 sqM) Glucose 119 H (74-99) mg/dL Plasma Lactic Acid Paulino 0.8 (0.7-2.0) mmol/L Calcium 9.4 (8.4-10.2) mg/dL Total Bilirubin 0.6 (0.2-1.3) mg/dL AST 21 (14-36) U/L ALT 12 (4-34) U/L Alkaline Phosphatase 89 (38-126) U/L Total Protein 7.0 (6.3-8.2) g/dL Albumin 4.0 (3.5-5.0) g/dL Amylase 40 (30-110) U/L Lipase 50 (23-300) U/L Urine Color Urine Appearance (Clear) Urine pH (5.0-8.0) Ur Specific Flag[place] (1.001-1.035) Urine Protein (Negative) Urine Glucose (UA) (Negative) Urine Ketones (Negative) Urine Blood (Negative) Urine Nitrite (Negative) Urine Bilirubin (Negative) Urine Urobilinogen (<2.0) mg/dL Ur Leukocyte Esterase (Negative) Urine RBC (0-5) /hpf Urine WBC (0-5) /hpf Ur Squamous Epith Cells (0-4) /hpf Urine Bacteria (None) /hpf Urine Mucus (None) /hpf - Radiology Data Radiology results: report reviewed Diffuse fatty infiltration of the liver. Simple appearing left renal cyst. No suspicious acute bowel changes or stenosis of prior bowel surgery is identified. Disposition Clinical Impression: Left sided abdominal pain, Renal cyst Disposition: HOME SELF-CARE Instructions (If sedation given, give patient instructions): Abdominal Pain (ED) Additional Instructions: Please use medication as discussed. Please follow up with family doctor if symptoms have not improved over the next two days. Please return to the emergency room if your symptoms increase or worsen or for any other concerns. Prescriptions: Sucralfate [Carafate] 1 gm PO ACHS #100 ml Is patient prescribed a controlled substance at d/c from ED?: No Referrals: Mark Han MD [Primary Care Provider] - 1-2 days Ximena Rivera MD [STAFF PHYSICIAN] - 1-2 days Time of Disposition: 22:28
[2020-07-11 21:15] LABS: Basophils # (A) 0.1 k/uL (0-0.2); Basophils % (A) 1 %; Eosinophils # (A) 0.3 k/uL (0-0.7); Eosinophils % (A) 2 %; HCT 40.3 % (34.0-46.0); HGB 13.3 gm/dL (11.4-16.0); Lymphocytes # (A) 3.4 k/uL (1.0-4.8); Lymphocytes % (A) 33 %; MCH 30.6 pg (25.0-35.0); MCHC 32.9 g/dL (31.0-37.0); MCV 92.9 fL (80.0-100.0); Mean Platelet Volume 8.4; Monocytes # (A) 0.8 k/uL (0-1.0); Monocytes % (A) 8 %; Neutrophils # (A) 5.5 k/uL (1.3-7.7); Neutrophils % (A) 54 %; Platelet Count 266 k/uL (150-450); RBC 4.34 m/uL (3.80-5.40); RDW 13.5 % (11.5-15.5); WBC 10.3 k/uL (3.8-10.6)
[2020-07-11 21:17] LABS: INR 0.9 (<1.2); Partial Thromboplastin Time 23.2 sec (22.0-30.0); Prothrombin Time 9.8 sec (9.0-12.0)
[2020-07-11 21:19] LABS: Appearance,Urine Cloudy (Clear); Bacteria,Urine Occasional /hpf; Bilirubin,Urine Negative (Negative); Blood,Urine Small (Negative); Color,Urine Yellow; Glucose,Urine (UA) Negative (Negative); Ketones,Urine Negative (Negative); Leukocyte Esterase,Urine Small (Negative); Mucus,Urine Occasional /hpf; Nitrite,Urine Negative (Negative); PH, Urine 5.5 (5.0-8.0); Protein,Urine Negative (Negative); RBC,Urine 1 /hpf (0-5); Specific Gravity,Urine 1.011 (1.001-1.035); Squamous Epithelial Cell,Urine 18 /hpf (0-4); Urobilinogen,Urine <2.0 mg/dL (<2.0); WBC,Urine 7 /hpf (0-5)
[2020-07-11 21:20] LABS: Calcium 9.4 mg/dL (8.4-10.2); Potassium 4.3 mmol/L (3.5-5.1); Total Bilirubin 0.6 mg/dL (0.2-1.3)
--- NOTE | 2020-07-11 22:17 | CT ---
EXAMINATION TYPE: CT abdomen pelvis w con DATE OF EXAM: 07/11/2020 COMPARISON: 12/16/2019 INDICATION: Abdominal pain. DLP: 1205.5 mGycm, Automated exposure control for dose reduction was used. CONTRAST: 80ml mL of Isovue 300. Study performed without Oral Contrast TECHNIQUE: Axial images were obtained from above the diaphragm to the pubic rami in the axial plane a t 5 mm thick sections. Reconstructed images are reviewed on the computer in the coronal plane. FINDINGS: Limited CT sections are obtained the lung bases. The lung bases are clear. CT ABDOMEN: Liver: There is moderate diffuse fatty infiltration throughout the liver. No discrete masses or cysts are evident. Spleen: Normal Pancreas: Normal Adrenal glands: The adrenal glands are normal. Gallbladder: Surgically absent Kidneys: No masses are evident. No hydronephrosis is present. There is a 2.6 cm cyst extending from the lateral upper pole of the left kidney measuring 5 Hounsfield units. An additional cyst extends f rom the posterior lateral inferior pole left kidney measuring 2.6 cm and 1 Hounsfield unit. Delayed images were obtained through the kidneys, which remain unremarkable. Aorta: Vascular calcification is within the aorta. Inferior vena cava: Normal. CT PELVIS: Loops of bowel within the abdomen and pelvis are normal. The study is without oral contrast limit ing bowel evaluation. Bowel surgery is evident within the anterior pelvis and within the rectosigmoid junction region. No change suggest obstruction or stenosis is evident. Appendix: Normal as visualized. Urinary bladder: Normal. Genitourinary structures: Uterus and ovaries are not identified. No free fluid is within the pelvis. Osseous structures: No suspicious lytic or sclerotic lesions. Hypertrophy is present L5-S1. Mild scol iosis is present. IMPRESSIONS: 1. Are diffuse fatty infiltration to the liver. 2. Simple appearing left renal cysts. 3. No suspicious acute bowel changes. No stenosis of prior bowel surgery is identified.
[2020-07-11 22:36] VITALS: PULSE 83; RESP 16
== END 2020-07-11 22:36 | disposition home or self-care (01) ==
LOC: EC 19:46
DX: N28.1 Cyst of kidney, acquired (principal); F17.200 Nicotine dependence, unspecified, uncomplicated; Z79.899 Other long term (current) drug therapy; Z91.048 Other nonmedicinal substance allergy status; Z91.011 Allergy to milk products; Z88.1 Allergy status to other antibiotic agents; Z88.8 Allergy status to other drugs, medicaments and biological substances; Z88.5 Allergy status to narcotic agent; Z90.89 Acquired absence of other organs; Z98.890 Other specified postprocedural states; Z90.49 Acquired absence of other specified parts of digestive tract; Z90.710 Acquired absence of both cervix and uterus; Z93.3 Colostomy status
CPT/HCPCS: 36415; 80053; 82150; 83605; 83690; 85025; 85610; 85730; 81001; 74177; 99284; 96374; 96375; 96361; J2270; J2405; Q9967

== ENCOUNTER 2021-06-25 07:54 | Emergency (ER) | payer MEDICARE, OTHER ==
[2021-06-25 08:02] VITALS: RESP 18; TEMP 97.6
[2021-06-25] MEDS ORDERED: ONDANSETRON 4 MG/2 ML VIAL IVP STA (08:21)
[2021-06-25] MEDS ORDERED: SODIUM CHLORIDE 0.9% 1,000 ML IV STA (08:21)
--- NOTE | 2021-06-25 08:26 | ED ---
General Adult HPI - General Chief complaint: Nausea/Vomiting/Diarrhea Stated complaint: diarrhea Time Seen by Provider: 06/25/21 07:56 Source: patient, EMS Mode of arrival: EMS Limitations: no limitations - History of Present Illness Initial comments: Dictation was produced using [employer] dictation software. please excuse any grammatical, word or spelling errors. Chief Complaint: 71-year-old female presents with diarrhea History of Present Illness: Is 71-year-old female presents today with intractable diarrhea. She states this morning she had severe episode of diarrhea. She states that she wasn't able to make to the bathroom and had an accident. She had diarrhea that she reports is dark in color. She's been taking a lot of Pepto-Bismol. Over the last several weeks patient has been battling diarrhea she states she's had 3 or 4 CTs within the last month or so. Patient was told that she had Clostridium difficile, ulcerative colitis causing her diarrhea. She was supposed to call to make an appointment with gastroentero logist for colonoscopy. Patient has no fever. She states that she has very mild abdominal discomfort diffusely throughout her abdomen. She is complaining of some very mild nausea. States that the CTs that she had performed recently did not show any signs of surgical abdomen. Patient is brought in by EMS. Patient does report having history of diverticulosis and diverticulitis. Patient she's completed 7 days of antibiotics for C. diff infection. The ROS documented in this emergency department record has been reviewed and confirmed by me. Those systems with pertinent positive or negative responses have been documented in the HPI. All other systems are other negative and/or noncontributory. PHYSICAL EXAM: General Impression: Alert and oriented x3, not in acute distress HEENT: Normocephalic atraumatic, extra-ocular movements intact, pupils equal and reactive to light bilaterally, mucous membranes moist. Cardiovascular: Heart regular rate and rhythm Chest: Able to complete full sentences, no retractions, no tachypnea Abdomen: abdomen soft, primary minimal palpatory tenderness diffusely, non- distended, no organomegaly, no pain to the left lower quadrant Musculoskeletal: Pulses present and equal in all extremities, no peripheral edema Motor: no focal deficits noted Neurological: CN II-XII grossly intact, no focal motor or sensory deficits noted Skin: Intact with no visualized rashes Psych: Normal affect and mood ED course: 71-year-old well-appearing female presents to the emergency Department with acute on chronic diarrhea. She has minimal abdominal pain. She is well-appearing at bedside with stable vital signs. Vital Signs upon arrival are within acceptable limits. Given that patient has had multiple CT scans in the last couple weeks with benign abdomen no indication for repeat CT imaging at this time. EKG interpretation: Ventricular rate 72, sinus rhythm, ID interval 242, QRS 70, QTc 455. No ID prolongation, no QTC prolongation, no ST or T-wave changes noted. EKG compared to. Her 2019 showing no changes. Overall, this EKG is unremarkable Laboratory evaluation obtained. CBC unremarkable. Metabolic panel is within acceptable limits. No signs of dehydration. Abdominal x-rays nonacute. Patient observed in the emergency department for approximately 3 hours in stable medical condition. She has not had any diarrhea episodes. Patient tolerating oral intake at bedside. She is given IV fluids and antiemetics. Patient given Lomotil starter pack. She is advised to follow up with primary care doctor. Pending stool culture and C. diff results. I doubt that patient has C. diff given that she has taken C. diff medications. Nonetheless still culture sent. She is advised to follow-up with GI doctor for further care. - Related Data Home Medications Medication Instructions Recorded Confirmed oxyCODONE-APAP 10-325MG [Percocet 0.5 tab PO HS 04/29/19 06/25/21 10-325 mg] Pantoprazole [Protonix] 40 mg PO DAILY 12/16/19 06/25/21 Allergies Allergy/AdvReac Type Severity Reaction Status Date / Time adhesive tape Allergy Severe TURNS SKIN Verified 06/25/21 08:41 BLACK AND BLUE WITH RASH AROUND AREA lactose Allergy Nausea & Verified 06/25/21 08:41 Vomiting & Diarrhea tetracycline AdvReac Mild Nausea & Verified 06/25/21 08:41 Vomiting codeine AdvReac Nausea & Verified 06/25/21 08:41 Vomiting metronidazole [From Flagyl] AdvReac nausea Verified 06/25/21 08:41 vomiting diarrhea simvastatin AdvReac Nausea & Verified 06/25/21 08:41 Vomiting & Diarrhea Review of Systems ROS Statement: Those systems with pertinent positive or pertinent negative responses have been documented in the HPI. ROS Other: All systems not noted in ROS Statement are negative. 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 diverticulitis, History of Any Multi-Drug Resistant Organisms: None Reported Past Surgical History: Appendectomy, Bladder Surgery, Bowel Resection, Cholecystectomy, Hernia Repair, Hysterectomy Additional Past Surgical History / Comment(s): Colostomy and reversal; Colonoscopy, Cataract removal, Past Anesthesia/Blood Transfusion Reactions: No Reported Reaction Past Psychological History: No Psychological Hx Reported Smoking Status: Current every day smoker Past Alcohol Use History: None Reported Past Drug Use History: None Reported - Past Family History Mother Family Medical History: No Reported History General Exam Limitations: no limitations Course Vital Signs 06/25/21 06/25/21 07:56 10:39 Temperature 97.6 F Pulse Rate 77 75 Respiratory 18 18 Rate Blood Pressure 122/55 105/52 O2 Sat by Pulse 97 95 Oximetry Medical Decision Making - Lab Data Result diagrams: 06/25/21 08:43 06/25/21 08:43 Lab Results 06/25/21 06/25/21 06/25/21 Range/Units 08:43 08:43 08:43 WBC 7.7 (3.8-10.6) k/uL RBC 3.80 (3.80-5.40) m/uL Hgb 12.1 (11.4-16.0) gm/dL Hct 35.8 (34.0-46.0) % MCV 94.0 (80.0-100.0) fL MCH 31.9 (25.0-35.0) pg MCHC 33.9 (31.0-37.0) g/dL RDW 14.1 (11.5-15.5) % Plt Count 191 (150-450) k/uL MPV 8.4 Neutrophils % 59 % Lymphocytes % 28 % Monocytes % 8 % Eosinophils % 2 % Basophils % 1 % Neutrophils # 4.5 (1.3-7.7) k/uL Lymphocytes # 2.1 (1.0-4.8) k/uL Monocytes # 0.6 (0-1.0) k/uL Eosinophils # 0.1 (0-0.7) k/uL Basophils # 0.0 (0-0.2) k/uL Sodium 138 (137-145) mmol/L Potassium 4.1 (3.5-5.1) mmol/L Chloride 108 H (98-107) mmol/L Carbon Dioxide 25 (22-30) mmol/L Anion Gap 5 mmol/L BUN 13 (7-17) mg/dL Creatinine 0.93 (0.52-1.04) mg/dL Est GFR (CKD-EPI)AfAm 71 (>60 ml/min/1.73 sqM) Est GFR (CKD-EPI)NonAf 62 (>60 ml/min/1.73 sqM) Glucose 107 H (74-99) mg/dL Plasma Lactic Acid Paulino 1.0 (0.7-2.0) mmol/L Calcium 9.2 (8.4-10.2) mg/dL Magnesium 2.1 (1.6-2.3) mg/dL Total Bilirubin 0.6 (0.2-1.3) mg/dL AST 27 (14-36) U/L ALT 14 (4-34) U/L Alkaline Phosphatase 73 (38-126) U/L Total Protein 6.6 (6.3-8.2) g/dL Albumin 3.7 (3.5-5.0) g/dL Disposition Clinical Impression: Diarrhea Disposition: HOME SELF-CARE Condition: Fair Instructions (If sedation given, give patient instructions): Acute Diarrhea (ED) Is patient prescribed a controlled substance at d/c from ED?: No Referrals: Ximena Rivera MD [Family Provider] - 1-2 days
[2021-06-25 09:15] LABS: Basophils % (A) 1 %; Eosinophils # (A) 0.1 k/uL (0-0.7); Eosinophils % (A) 2 %; HCT 35.8 % (34.0-46.0); HGB 12.1 gm/dL (11.4-16.0); Lymphocytes # (A) 2.1 k/uL (1.0-4.8); Lymphocytes % (A) 28 %; MCH 31.9 pg (25.0-35.0); MCHC 33.9 g/dL (31.0-37.0); Mean Platelet Volume 8.4; Monocytes # (A) 0.6 k/uL (0-1.0); Monocytes % (A) 8 %; Neutrophils # (A) 4.5 k/uL (1.3-7.7); Neutrophils % (A) 59 %; Platelet Count 191 k/uL (150-450); RDW 14.1 % (11.5-15.5); WBC 7.7 k/uL (3.8-10.6)
--- NOTE | 2021-06-25 10:15 | XR ---
EXAMINATION TYPE: XR abdomen acute w cxr DATE OF EXAM: 06/25/2021 COMPARISON: NONE HISTORY: 71-year-old female with diarrhea TECHNIQUE: Supine, upright, and left side down lateral decubitus views of the abdomen are obtained. FINDINGS: Heart normal size. Mild atherosclerotic arch calcifications. Some strandy atelectasis in the lower aram ngs. No consolidation or pleural effusion. No evidence for free intraperitoneal air. Scattered air throughout small bowel and colon. A couple small bowel loops left paramedian mid abdome n are borderline in caliber measuring up to 2.9 cm. No differential air-fluid levels are seen. Cholecystectomy clips. Vascular calcifications in the pelvis. No significant stool burden. IMPRESSION: 1. No acute cardiopulmonary process. 2. No evidence for free air or bowel obstruction. 3. No significant stool burden. 4. A couple borderline distended small bowel loops in the left paramedian mid abdomen could represent an ileus or enteritis.
[2021-06-25 10:28] LABS: Albumin 3.7 g/dL (3.5-5.0); Calcium 9.2 mg/dL (8.4-10.2); Magnesium 2.1 mg/dL (1.6-2.3); Potassium 4.1 mmol/L (3.5-5.1); Total Bilirubin 0.6 mg/dL (0.2-1.3); Total Protein 6.6 g/dL (6.3-8.2)
[2021-06-25] MEDS ORDERED: DIPHENOX-ATROP STARTER PACK 8 TAB BTL PO STA (10:47)
[2021-06-25 11:21] VITALS: BP 109/80; PULSE 78
== END 2021-06-25 11:29 | disposition home or self-care (01) ==
LOC: EC 07:54
DX: R19.7 Diarrhea, unspecified (principal); G25.81 Restless legs syndrome; M19.90 Unspecified osteoarthritis, unspecified site; F17.200 Nicotine dependence, unspecified, uncomplicated; Z88.1 Allergy status to other antibiotic agents; Z88.5 Allergy status to narcotic agent; Z90.49 Acquired absence of other specified parts of digestive tract
CPT/HCPCS: 36415; 74022; 80053; 83605; 83735; 85025; 87086; 93005; 96360; 96361; 99284

== ENCOUNTER 2021-07-21 11:05 | Emergency (ER) | payer MEDICARE, OTHER ==
[2021-07-21 11:18] VITALS: BP 95/59; PULSE 74; RESP 20; TEMP 98.2
--- NOTE | 2021-07-21 14:10 | XR ---
EXAMINATION TYPE: XR KUB DATE OF EXAM: 07/21/2021 COMPARISON: 06/25/2021 HISTORY: Abnormal pain TECHNIQUE: 2 views upright FINDINGS: There is no sign of intestinal obstruction or pneumoperitoneum. Fecal pattern is normal. Th ere is no evidence of a mass. IMPRESSION: Nonacute abdomen. Cholecystectomy noted. No adverse change.
[2021-07-21] MEDS ORDERED: MAGNESIUM CITRATE 296 ML BOTTLE PO ONE (14:51)
--- NOTE | 2021-07-21 14:53 | ED ---
Abdominal Pain HPI - General Chief Complaint: Abdominal Pain Stated Complaint: revisit - abd pain Time Seen by Provider: 07/21/21 12:59 Source: patient Mode of arrival: ambulatory Limitations: no limitations - History of Present Illness Initial Comments: Patient is a 71-year-old female presents emergency room with reported constipation. States that she had a colonoscopy on July 12 and has not had a bowel movement since. She reports that she has used stool softeners, enemas, milk of magnesia and fiber tablets without any improvement. She continues to pass gas and had a small amount of formed stool however had to strain. She reports a previous history of bowel obstruction with colostomy and reversal therefore she was concerned. She called Dr. Blanco is office recommend that she come in for an x-ray. She admits to generalized abdominal discomfort however has no significant abdominal pain. Denies any urinary complaints. No fevers or chills. States her symptoms are different from when she had a bowel obstruction. No other alleviating, precipitating or modifying factors - Related Data Home Medications Medication Instructions Recorded Confirmed oxyCODONE-APAP 10-325MG [Percocet 0.5 tab PO HS 04/29/19 07/21/21 10-325 mg] Allergies Allergy/AdvReac Type Severity Reaction Status Date / Time adhesive tape Allergy Severe TURNS SKIN Verified 07/21/21 14:16 BLACK AND BLUE WITH RASH AROUND AREA lactose Allergy Nausea & Verified 07/21/21 14:16 Vomiting & Diarrhea tetracycline AdvReac Mild Nausea & Verified 07/21/21 14:16 Vomiting codeine AdvReac Nausea & Verified 07/21/21 14:16 Vomiting metronidazole [From Flagyl] AdvReac nausea Verified 07/21/21 14:16 vomiting diarrhea simvastatin AdvReac Nausea & Verified 07/21/21 14:16 Vomiting & Diarrhea Review of Systems ROS Statement: Those systems with pertinent positive or pertinent negative responses have been documented in the HPI. ROS Other: All systems not noted in ROS Statement are negative. Past Medical History Past Medical History: Osteoarthritis (OA) Additional Past Medical History / Comment(s): dizziness,"low BP left arm due to blockage"; restless leg, varicose veins, arthritis, 4cm aortic aneuresym- following up with senior staff consultant. diverticulitis, History of Any Multi-Drug Resistant Organisms: None Reported Past Surgical History: Appendectomy, Bladder Surgery, Bowel Resection, Cholecystectomy, Hernia Repair, Hysterectomy Additional Past Surgical History / Comment(s): Colostomy and reversal; Colonoscopy, Cataract removal, Past Anesthesia/Blood Transfusion Reactions: No Reported Reaction Past Psychological History: No Psychological Hx Reported Smoking Status: Current every day smoker Past Alcohol Use History: None Reported Past Drug Use History: None Reported - Past Family History Mother Family Medical History: No Reported History General Exam Limitations: no limitations Course Vital Signs 07/21/21 11:15 Temperature 98.2 F Pulse Rate 74 Respiratory 20 Rate Blood Pressure 95/59 O2 Sat by Pulse 96 Oximetry Medical Decision Making - Medical Decision Making Upon arrival patient's placed into room 28. A thorough history and physical was performed. I did recommend laboratory studies and a CT due to the patient's history however she refuses. States that she just wants to start with a x-ray at this time. X-rays performed and demonstrates no obstructive process. I did discuss performing further tests due to her history however the patient refused stating that she would like to go home at this time. I did give her a bottle of magnesium citrate. She is instructed to drink the bottle. After 4 hours if she does not have bowel movement, she is to drink the second half. The patient does not have a bowel movement in 24 hours I did recommend that she return to the emergency room for further evaluation. Patient agreed to this. Was given w ritten and verbal discharge instructions and discharged home Disposition Clinical Impression: Constipation Disposition: HOME SELF-CARE Condition: Stable Instructions (If sedation given, give patient instructions): Constipation (ED) Additional Instructions: Drink half the bottle of mag citrate. Wait 4 hours. If you do not have a bowel movement, drink the other half. Return to the emergency department if he do not have a bowel movement within 24 hours. You can continue taking your stool softeners daily. Is patient prescribed a controlled substance at d/c from ED?: No Referrals: Mark Han MD [Primary Care Provider] - 1-2 days Time of Disposition: 14:53
== END 2021-07-21 14:57 | disposition home or self-care (01) ==
LOC: EC 11:05
DX: K59.00 Constipation, unspecified (principal); F17.200 Nicotine dependence, unspecified, uncomplicated
CPT/HCPCS: 74018; 99283

== ENCOUNTER 2021-08-26 17:21 | Emergency (ER) | payer MEDICARE, OTHER ==
[2021-08-26 17:31] VITALS: TEMP 97.6
[2021-08-26] MEDS ORDERED: SODIUM CHLORIDE 0.9% 1,000 ML IV STA (17:36)
[2021-08-26 18:12] LABS: Basophils % (A) 0 %; Eosinophils % (A) 0 %; HCT 39.9 % (34.0-46.0); Lymphocytes # (A) 1.8 k/uL (1.0-4.8); Lymphocytes % (A) 16 %; MCH 30.7 pg (25.0-35.0); MCHC 32.7 g/dL (31.0-37.0); Mean Platelet Volume 8.3; Monocytes # (A) 0.7 k/uL (0-1.0); Monocytes % (A) 6 %; Neutrophils # (A) 8.2 k/uL (1.3-7.7); Neutrophils % (A) 75 %; Platelet Count 260 k/uL (150-450); RBC 4.24 m/uL (3.80-5.40); RDW 13.2 % (11.5-15.5); WBC 10.9 k/uL (3.8-10.6)
[2021-08-26 18:23] LABS: Albumin 3.7 g/dL (3.5-5.0); Calcium 9.1 mg/dL (8.4-10.2); Magnesium 2.1 mg/dL (1.6-2.3); Potassium 4.2 mmol/L (3.5-5.1); Prothrombin Time 10.5 sec (9.0-12.0); Total Bilirubin 0.6 mg/dL (0.2-1.3)
[2021-08-26 18:47] LABS: Partial Thromboplastin Time 19.1 sec (22.0-30.0)
--- NOTE | 2021-08-26 18:55 | XR ---
EXAMINATION TYPE: XR chest 2V DATE OF EXAM: 08/26/2021 COMPARISON: 06/25/2021 HISTORY: Difficulty breathing TECHNIQUE: 2 views FINDINGS: Heart and mediastinum are normal. Lungs are clear. Diaphragm is normal. Bony thorax is inta ct. IMPRESSION: Normal chest. No change.
--- NOTE | 2021-08-26 19:32 | ED ---
General Adult HPI - General Chief complaint: Upper Respiratory Infection Stated complaint: FRANCHESCA Time Seen by Provider: 08/26/21 17:31 Source: patient, EMS, RN notes reviewed Mode of arrival: EMS Limitations: no limitations - History of Present Illness Initial comments: Patient is a 71-year-old female that presents emergency department complaining of increased shortness of breath patient notes that she was recently diagnosed with RSV given steroids and antibiotics as a prophylactic for possible pneumonia. Patient notes that her was recently admitted to hospital here yesterday with RSV and increased oxygen needs. Patient was in no apparent distress. She notes that she was just having coughing fits felt short of breath so she can emergency room to get evaluated. She was otherwise well-appearing. She was very pleasant. She denied chest pain headache nausea vomiting diarrhea constipation fever fatigue chills. - Related Data Home Medications Medication Instructions Recorded Confirmed oxyCODONE-APAP 10-325MG [Percocet 0.5 tab PO HS 04/29/19 07/21/21 10-325 mg] Allergies Allergy/AdvReac Type Severity Reaction Status Date / Time adhesive tape Allergy Severe TURNS SKIN Verified 08/26/21 17:31 BLACK AND BLUE WITH RASH AROUND AREA lactose Allergy Nausea & Verified 08/26/21 17:31 Vomiting & Diarrhea tetracycline AdvReac Mild Nausea & Verified 08/26/21 17:31 Vomiting codeine AdvReac Nausea & Verified 08/26/21 17:31 Vomiting metronidazole [From Flagyl] AdvReac nausea Verified 08/26/21 17:31 vomiting diarrhea simvastatin AdvReac Nausea & Verified 08/26/21 17:31 Vomiting & Diarrhea Review of Systems ROS Statement: Those systems with pertinent positive or pertinent negative responses have been documented in the HPI. ROS Other: All systems not noted in ROS Statement are negative. Past Medical History Past Medical History: Osteoarthritis (OA) Additional Past Medical History / Comment(s): dizziness,"low BP left arm due to blockage"; restless leg, varicose veins, arthritis, 4cm aortic aneuresym- following up with labor relations worker. diverticulitis, History of Any Multi-Drug Resistant Organisms: None Reported Past Surgical History: Appendectomy, Bladder Surgery, Bowel Resection, Cholecys tectomy, Hernia Repair, Hysterectomy Additional Past Surgical History / Comment(s): Colostomy and reversal; Colonoscopy, Cataract removal, Past Anesthesia/Blood Transfusion Reactions: No Reported Reaction Past Psychological History: No Psychological Hx Reported Smoking Status: Current every day smoker Past Alcohol Use History: None Reported Past Drug Use History: None Reported - Past Family History Mother Family Medical History: No Reported History General Exam Limitations: no limitations General appearance: alert, in no apparent distress Head exam: Present: atraumatic, normocephalic, normal inspection Eye exam: Present: normal appearance, PERRL, EOMI. Absent: scleral icterus, conjunctival injection, periorbital swelling ENT exam: Present: normal exam, mucous membranes moist Neck exam: Present: normal inspection Respiratory exam: Present: normal lung sounds bilaterally. Absent: respiratory distress, wheezes, rales, rhonchi, stridor Cardiovascular Exam: Present: regular rate, normal rhythm, normal heart sounds. Absent: systolic murmur, diastolic murmur, rubs, gallop, clicks GI/Abdominal exam: Present: soft, normal bowel sounds. Absent: distended, tenderness, guarding, rebound, rigid Extremities exam: Present: normal inspection, full ROM, normal capillary refill. Absent: tenderness, pedal edema, joint swelling, calf tenderness Neurological exam: Present: alert, oriented X3 Psychiatric exam: Present: normal affect, normal mood Skin exam: Present: warm, dry, intact, normal color. Absent: rash Course Vital Signs 08/26/21 17:24 Temperature 97.6 F Pulse Rate 88 Respiratory 20 Rate Blood Pressure 135/70 O2 Sat by Pulse 95 Oximetry EKG Findings - EKG Comments: EKG Findings:: Ventricular rate 77 bpm, VA interval 194 ms, QRS duration 74 ms, QTC 454 ms, PRT axes 76/20/89. Sinus rhythm with premature atrial complexes, otherwise normal ECG. Medical Decision Making - Medical Decision Making 71-year-old male positive RSV complaining of increased shortness breath today. Labs, EKG, monitoring manager, chest x-ray, nasal cannula 2 L oxygen ordered. Patient's vital signs are stable saturating at 97% on 2 L. Labs unremarkable mild dehydration lactic acid 2.1, 1 L normal saline given. Patient saturating at 95% on room air. Dr. Melgoza consulted states the patient is able to discharge home with conservative management. Case discussed with Dr. Scott, patient discharge home with conservative management. Primary care. - Lab Data Result diagrams: 08/26/21 18:02 08/26/21 18:02 Lab Results 08/26/21 08/26/21 08/26/21 Range/Units 18:02 18:02 18:02 WBC 10.9 H (3.8-10.6) k/uL RBC 4.24 (3.80-5.40) m/uL Hgb 13.0 (11.4-16.0) gm/dL Hct 39.9 (34.0-46.0) % MCV 94.0 (80.0-100.0) fL MCH 30.7 (25.0-35.0) pg MCHC 32.7 (31.0-37.0) g/dL RDW 13.2 (11.5-15.5) % Plt Count 260 (150-450) k/uL MPV 8.3 Neutrophils % 75 % Lymphocytes % 16 % Monocytes % 6 % Eosinophils % 0 % Basophils % 0 % Neutrophils # 8.2 H (1.3-7.7) k/uL Lymphocytes # 1.8 (1.0-4.8) k/uL Monocytes # 0.7 (0-1.0) k/uL Eosinophils # 0.0 (0-0.7) k/uL Basophils # 0.0 (0-0.2) k/uL PT 10.5 (9.0-12.0) sec INR 1.0 (<1.2) APTT 19.1 L (22.0-30.0) sec Sodium 137 (137-145) mmol/L Potassium 4.2 (3.5-5.1) mmol/L Chloride 104 (98-107) mmol/L Carbon Dioxide 22 (22-30) mmol/L Anion Gap 11 mmol/L BUN 20 H (7-17) mg/dL Creatinine 0.99 (0.52-1.04) mg/dL Est GFR (CKD-EPI)AfAm 66 (>60 ml/min/1.73 sqM) Est GFR (CKD-EPI)NonAf 57 (>60 ml/min/1.73 sqM) Glucose 197 H (74-99) mg/dL Plasma Lactic Acid Paulino (0.7-2.0) mmol/L Calcium 9.1 (8.4-10.2) mg/dL Magnesium 2.1 (1.6-2.3) mg/dL Total Bilirubin 0.6 (0.2-1.3) mg/dL AST 26 (14-36) U/L ALT 39 H (4-34) U/L Alkaline Phosphatase 67 (38-126) U/L Troponin I (0.000-0.034) ng/mL NT-Pro-B Natriuret Pep pg/mL Total Protein 7.0 (6.3-8.2) g/dL Albumin 3.7 (3.5-5.0) g/dL 08/26/21 08/26/21 08/26/21 Range/Units 18:02 18:02 18:02 WBC (3.8-10.6) k/uL RBC (3.80-5.40) m/uL Hgb (11.4-16.0) gm/dL Hct (34.0-46.0) % MCV (80.0-100.0) fL MCH (25.0-35.0) pg MCHC (31.0-37.0) g/dL RDW (11.5-15.5) % Plt Count (150-450) k/uL MPV Neutrophils % % Lymphocytes % % Monocytes % % Eosinophils % % Basophils % % Neutrophils # (1.3-7.7) k/uL Lymphocytes # (1.0-4.8) k/uL Monocytes # (0-1.0) k/uL Eosinophils # (0-0.7) k/uL Basophils # (0-0.2) k/uL PT (9.0-12.0) sec INR (<1.2) APTT (22.0-30.0) sec Sodium (137-145) mmol/L Potassium (3.5-5.1) mmol/L Chloride (98-107) mmol/L Carbon Dioxide (22-30) mmol/L Anion Gap mmol/L BUN (7-17) mg/dL Creatinine (0.52-1.04) mg/dL Est GFR (CKD-EPI)AfAm (>60 ml/min/1.73 sqM) Est GFR (CKD-EPI)NonAf (>60 ml/min/1.73 sqM) Glucose (74-99) mg/dL Plasma Lactic Acid Paulino 2.1 H* (0.7-2.0) mmol/L Calcium (8.4-10.2) mg/dL Magnesium (1.6-2.3) mg/dL Total Bilirubin (0.2-1.3) mg/dL AST (14-36) U/L ALT (4-34) U/L Alkaline Phosphatase (38-126) U/L Troponin I <0.012 (0.000-0.034) ng/mL NT-Pro-B Natriuret Pep 388 pg/mL Total Protein (6.3-8.2) g/dL Albumin (3.5-5.0) g/dL - Radiology Data Radiology results: report reviewed, image reviewed Chest x-ray: Normal chest. No change. Disposition Clinical Impression: Respiratory syncytial virus Disposition: HOME SELF-CARE Condition: Stable Instructions (If sedation given, give patient instructions): Upper Respiratory Infection (ED) Additional Instructions: Please return to the Emergency Department if symptoms worsen or any other concerns. Follow-up with primary care 1-2 days. Conservative management with Tylenol and Motrin as needed for fevers, take at home medications as prescribed. Is patient prescribed a controlled substance at d/c from ED?: No Referrals: Mark Han MD [Primary Care Provider] - 1-2 days Time of Disposition: 19:31
[2021-08-26 19:42] LABS: Appearance,Urine Clear (Clear); Bilirubin,Urine Negative (Negative); Blood,Urine Negative (Negative); Color,Urine Light Yellow; Glucose,Urine (UA) Trace (Negative); Ketones,Urine Negative (Negative); Leukocyte Esterase,Urine Negative (Negative); Nitrite,Urine Negative (Negative); Protein,Urine Negative (Negative); Specific Gravity,Urine 1.008 (1.001-1.035); Urobilinogen,Urine <2.0 mg/dL (<2.0)
[2021-08-26 23:29] VITALS: BP 121/58; PULSE 77; RESP 18
== END 2021-08-26 19:50 | disposition home or self-care (01) ==
LOC: EC 17:21
DX: R06.02 Shortness of breath (principal); B97.4 Respiratory syncytial virus as the cause of diseases classified elsewhere; M19.90 Unspecified osteoarthritis, unspecified site; F17.200 Nicotine dependence, unspecified, uncomplicated
CPT/HCPCS: 36415; 71046; 80053; 81003; 83605; 83735; 83880; 84484; 85025; 85610; 85730; 93005; 96360; 99285